=== PATIENT | female | born 1960 | race Caucasian/White ===

== ENCOUNTER 2020-10-22 07:44 | Outpatient (CLI) | payer OTHER, SELFPAY ==
--- NOTE | 2020-10-22 07:47 | MM_ITS ---
WS: [id number] BILATERAL DIGITAL SCREENING MAMMOGRAPHY WITH CAD CLINICAL INFORMATION: SCREENING HISTORY: Screening mammogram. No current complaints. COMPARISON: TECHNIQUE: Bilateral CC and MLO views. FINDINGS: Scattered fibroglandular densities bilaterally. Large spiculated lesion upper outer left breast poste rior depth measuring 3.3 x 1.9 cm is new from 2019. Recommend further evaluation with spot compressio n views and ultrasound. Prior biopsy marker right breast MM/[place] [id number] IMPRESSION: BI-RADS: 0-Incomplete: Need additional imaging evaluation FOLLOW UP: Need Additional Imaging RECOMMEND LEFT DIAGNOSTIC MAMMOGRAPHY AND ULTRASOUND FOR THE NEW LARGE IRREGULA R LESION LEFT BREAST.
== END 2020-10-22 07:45 | disposition home or self-care (01) ==
LOC: RADSHAW 07:45
PROVIDERS: PCP Family Medicine; Visit Provider Family Medicine
DX: Z12.31 Encounter for screening mammogram for malignant neoplasm of breast (principal)
CPT/HCPCS: 77067

== ENCOUNTER 2020-10-30 07:29 | Outpatient (CLI) | payer OTHER, SELFPAY ==
--- NOTE | 2020-10-30 | US_ITS ---
NOTE: Report was unsigned for reason: Order was edited. Original Signature date and time was: 1056 ADDENDUM WS: [id number] Dr Arroyo's nurse was called with results at 240 pm. Nurse confirmed receipt of report. Addendum Dictated By: Marianne Monroy DO Addendum Signed By: Marianne Monroy DO Signed Date/Time: 10/30/20 1538 Addendum Cosigned By: WS: [id number] ADDITIONAL VIEWS LEFT MAMMOGRAM LEFT BREAST ULTRASOUND HISTORY: ABNORMAL MAMMOGRAM LT BREAST COMPARISON: 10/22/2020, 09/13/2018 LEFT MAMMOGRAM: Spot compression views and true ML. Spiculated mass is identified in the posterior LEFT breast along the 2:00 axis. Mass measures 2.3 x 3.5 cm with spiculated margins and mild soft tissue extensions into the trabecula. LEFT BREAST ULTRASOUND 2-D and color Doppler imaging submitted. Hypoechoic irregular mass with posterior shadowing at 2:00, 7 cm from the nipple. Mass measures 1.9 x 2.4 cm. Mild peripheral increased vascularity. No abnormal lymph nodes. MM/[place] [id number] IMPRESSION: BI-RADS: 5-Highly Suggestive of Malignancy FOLLOW UP: Biopsy Recommended Ultrasound guided biopsy recommended of the LEFT breast mass at 2:00. Notified Molina Arroyo MD at 10/30/2020 10:39 AM. MARLENA
--- NOTE | 2020-10-30 07:44 | MM_ITS ---
WS: [id number] ADDITIONAL VIEWS LEFT MAMMOGRAM LEFT BREAST ULTRASOUND HISTORY: ABNORMAL MAMMOGRAM LT BREAST COMPARISON: 10/22/2020, 09/13/2018 LEFT MAMMOGRAM: Spot compression views and true ML. Spiculated mass is identified in the posterior LEFT breast along the 2:00 axis. Mass measures 2.3 x 3 .5 cm with spiculated margins and mild soft tissue extensions into the trabecula. LEFT BREAST ULTRASOUND 2-D and color Doppler imaging submitted. Hypoechoic irregular mass with posterior shadowing at 2:00, 7 cm from the nipple. Mass measures 1.9 x 2.4 cm. Mild peripheral increased vascularity. No abnormal lymph nodes. MM/[place] [id number] IMPRESSION: BI-RADS: 5-Highly Suggestive of Malignancy FOLLOW UP: Biopsy Recommended Ultrasound guided biopsy recommended of the LEFT breast mass at 2:00. Notified Molina Arroyo MD at 10/30/2020 10:39 AM.
== END 2020-10-30 07:30 | disposition home or self-care (01) ==
LOC: RADSHAW 07:34
PROVIDERS: PCP Family Medicine; Visit Provider Family Medicine
DX: R92.8 Other abnormal and inconclusive findings on diagnostic imaging of breast (principal); N63.22 Unspecified lump in the left breast, upper inner quadrant
CPT/HCPCS: 76642; 77065

== ENCOUNTER 2020-11-05 12:20 | Outpatient (CLI) | payer OTHER, SELFPAY ==
--- NOTE | 2020-11-05 12:31 | US_ITS ---
WS: [id number] ULTRASOUND-GUIDED LEFT BREAST BIOPSY HISTORY: ABNORMAL L BREAST MAMMOGRAM COMPARISON: 10/30/2020, 10/22/2020 Procedure, risks and complications are explained to the patient. Medications are reviewed. Consent is obtained. The mass in the LEFT breast is localized with ultrasound. Mass localizes at 2:00. Skin is cleansed wi th ChloraPrep and anesthetized with 1% buffered lidocaine. Small dermatome is made. Under sterile con ditions mass is biopsied with a 14-gauge Achieve needle. Multiple core biopsies are performed. Materi al placed in formalin and sent to pathology for review. No complications encountered. Breast tissue marker (Bard ultrasound enhanced ribbon): Single. Patient left the radiology suite with no complications. Patient is instructed to return to [facility] [place] [facility] with any concerns. US/[place] [id number] IMPRESSION: 1. Uncomplicated core needle biopsy LEFT breast mass at 2:00. PATHOLOGY: Desmoid tumor. RECOMMENDATION: Please see the entire histopathology report. Consider surgical evaluation and possible removal.
== END 2020-11-05 12:21 | disposition home or self-care (01) ==
PROVIDERS: PCP Family Medicine; Visit Provider Family Medicine
DX: R92.8 Other abnormal and inconclusive findings on diagnostic imaging of breast (principal); N63.20 Unspecified lump in the left breast, unspecified quadrant
CPT/HCPCS: 19083; 88305

== ENCOUNTER → 2020-11-24 11:58 | Outpatient (BNVA) | payer OTHER, SELFPAY | PROVIDERS: PCP Family Medicine; Visit Provider Surgery | DX: Z20.822 Contact with and (suspected) exposure to COVID-19 (principal) | CPT/HCPCS: 87635 ==

== ENCOUNTER 2020-12-01 08:47 | Day surgery (SDC) | payer OTHER, SELFPAY ==
[2020-11-28 10:06] VITALS: BMI 39.9
[2020-12-01] VITALS (7 sets, daily range): BP systolic 106–143; BP diastolic 68–99; PULSE 60–73; RESP 12–18; TEMP 36.2–36.5; O2SAT 95–98
--- NOTE | 2020-12-01 09:21 | W.PM.OPSUD ---
Surgery/Procedure H&P Update DATE OF PROCEDURE: December 01, 2020 DATE H&P PERFORMED: 11/21/20 H&P UPDATE INFORMATION: I have reviewed H&P completed within last 30 days, I have examined patient prior to procedure and No changes to prior documentation PREOP DIAGNOSIS: left breast mass PLANNED PROCEDURE: Operation Date: 12/01/20 11:00 Proposed Procedures p left breast lumpectomy 59188 D48.60(Left) - Roman Segura MD
--- NOTE | 2020-12-01 09:48 | ANES.PREANE2 ---
Pre-Anesthetic Assessment Pre-Anesthetic Assessment: Height/Weight: Height 1.7 m Weight 115.666 kg Temp Pulse Resp BP Pulse Ox 97.4 F L 72 18 143/99 96 12/01/20 09:12 12/01/20 09:12 12/01/20 09:12 12/01/20 09:12 12/01/20 09:12 Preop Diagnosis: left breast mass Proposed Procedure: Operation Date: 12/01/20 11:00 Proposed Procedures p left breast lumpectomy 83337 D48.60(Left) - Roman Segura MD Familial anesthetic complications: occassional PONV Was Beta Cary taken within 24 hours: N/A Was Clonidine taken within 24 hours: N/A Last intake: Intake Last Liquid Date 11/30/20 Last Liquid Time 23:00 Last Solid Date 11/30/20 Last Solid Time 21:00 Social: Social History: No alcohol and No tobacco Exam: Pre-Anes Outpt Exam: alert, oriented x 3, clear to auscultation bilaterally and regular rate & rhythm Airway: Cervical ROM: WNL MP: 3 Dentition: Full Pulmonary: Pulmonary: Asthma (cold- and exercise-induced ) GI: GI: GERD Metabolic: Metabolic: Morbid obesity and Thyroid Anesthetic Plan: ASA status: 2 Anesthesia: MAC Risk of > 500 ml blood loss (7ml/kg in children): No PFSH Anesthesia PFSH: Medical History (Updated 11/21/20 @ 11:55 by Roman Segura MD) Chronic GERD 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 Dyslipidemia Hypothyroidism Surgical History (Updated 12/01/20 @ 09:30 by Roman Segura MD) History of cholecystectomy History of colonoscopy History of esophagogastroduodenoscopy (EGD) History of foot surgery History of nasal surgery Status post left breast lumpectomy (12/01/20) Family History (Updated 11/21/20 @ 11:28 by SAVANNAH Miller) Denies family history of Anesthesia complication Bleeding disorder Social History (Updated 06/05/20 @ 10:57 by Frances Freed) Smoking and tobacco status: never smoked Alcohol intake: current Alcohol intake frequency: holidays/special occasions only Data Anesthesia Cardiac Studies: No Data to Display
[2020-12-01] MEDS: lidocaine 1% INJ 20 mL INJECTION (11:11)
--- NOTE | 2020-12-01 11:49 | PM.OP ---
Operative Report Date of procedure: December 01, 2020 Pre-op Diagnosis: Desmoid tumor left breast Post-op diagnosis: same Procedure Done: Left breast lumpectomy with shave margins Specimens removed/disposition: 1. Left breast mass short stitch superior, long stitch lateral 2. Superior shave margin 3. Inferior shave margin 4. Anterior shave margin 5. Medial shave margin 6. Lateral shave margin Surgeon: Roman Segura Anesthesia: MAC and General Condition: stable Disposition: PACU Procedure: The patient was taken to the operating room and the left breast was prepped and draped in a sterile manner. Using a 15 blade 4 cm incision was made over the palpable mass in the anterior axillary line, subcutaneous tissue was divided and medial lateral skin flaps were raised. The palpable mass was dissected free from the surrounding subcutaneous tissue using electrocautery. Bleeding was controlled with a combination of electrocautery and 3-0 Vicryl sutures. The mass was excised free from the surrounding subcutaneous tissue and posteriorly from the pectoral muscle and sent to pathology. 2-0 silk suture was used to place a short stitch superiorly and a long stitch laterally. 1 cm shave margins were obtained from the superior, inferior, medial, lateral and anterior margins and the outer edge was inked. There was no posterior margin obtained since my initial dissection included the pectoral muscle. The wound was irrigated with saline, hemostasis ensured and the wound was closed in layers using interrupted 3-0 Vicryl suture and skin was closed using running subcuticular 4-0 Monocryl suture and Dermabond. 1% lidocaine with 0.5% Marcaine is infiltrated in the lumpectomy cavity. The patient was transferred to recovery room in stable condition.
--- NOTE | 2020-12-01 16:36 | ANE.PACU2 ---
Inpatient post-anesthesia follow up: Airway intact: Yes Vital signs: Temperature 97.2 F Pulse Rate 60 Respiratory Rate 17 Blood Pressure 126/80 Pulse Oximetry 98 Oxygen Delivery Me thod Room Air Oxygen Flow Rate Fraction of Inspir ed Oxygen Hydration adequate: Yes Nausea and vomiting: No Pain level: 2 Mental status: Baseline
== END 2020-12-01 13:10 | disposition home or self-care (01) ==
PROVIDERS: PCP Family Medicine; Visit Provider Surgery
PROC: (CPT 19301; principal; 2020-12-01 10:50)
DX: D48.62 Neoplasm of uncertain behavior of left breast (principal); J45.909 Unspecified asthma, uncomplicated; K21.9 Gastro-esophageal reflux disease without esophagitis; E66.01 Morbid (severe) obesity due to excess calories; Z68.39 Body mass index [BMI] 39.0-39.9, adult; E78.5 Hyperlipidemia, unspecified; E03.9 Hypothyroidism, unspecified
CPT/HCPCS: 19301; 88305; J0690; J1100; J1885; J2250; J2370; J2704; J3010; J3490

== ENCOUNTER → 2021-03-02 10:19 | Outpatient (BNVA) | payer OTHER, SELFPAY | PROVIDERS: PCP Family Medicine; Visit Provider Surgery | DX: Z11.52 Encounter for screening for COVID-19 (principal) | CPT/HCPCS: 87635 ==

== ENCOUNTER 2021-03-05 06:35 | Day surgery (SDC) | payer OTHER, SELFPAY ==
[2021-03-02 12:43] VITALS: BMI 42.7
--- NOTE | 2021-03-05 06:54 | ANES.PREANE2 ---
Pre-Anesthetic Assessment Pre-Anesthetic Assessment: Height/Weight: Height 1.68 m Weight 120.202 kg Preop Diagnosis: Desmoid tumor left breast Proposed Procedure: Operation Date: 03/05/21 08:00 Proposed Procedures p Colonoscopy 98280 Z12.11(Not Applicable) - Roman Segura MD Was Beta Cary taken within 24 hours: N/A Was Clonidine taken within 24 hours: N/A Social: Social History: No alcohol and No tobacco Exam: Pre-Anes Outpt Exam: alert, oriented x 3, clear to auscultation bilaterally and regular rate & rhythm Airway: Submandibular: WNL Cervical ROM: WNL MP: 2 Dentition: Full GI: GI: GERD Metabolic: Metabolic: Hyperlipidemia, Morbid obesity and Thyroid Anesthetic Plan: ASA status: 3 Anesthesia: MAC Risk of > 500 ml blood loss (7ml/kg in children): No PFSH Anesthesia PFSH: Medical History (Updated 12/12/20 @ 16:35 by Roman Segura MD) Chronic GERD Desmoid tumor Left breast Dyslipidemia Hypothyroidism Surgical History History of cholecystectomy History of colonoscopy History of esophagogastroduodenoscopy (EGD) History of foot surgery History of nasal surgery Status post left breast lumpectomy (12/01/20) Family History Denies family history of Anesthesia complication Bleeding disorder Social History Alcohol intake: current Alcohol intake frequency: holidays/special occasions only Data Anesthesia Cardiac Studies: No Data to Display
[2021-03-05 07:01] VITALS: BP 99/74; PULSE 86; RESP 18; TEMP 36.1; O2SAT 96
[2021-03-05] MEDS: sodium chloride 0.9% 1,000 ML 30 ML IV (07:17)
--- NOTE | 2021-03-05 08:14 | P.HP_ITS ---
Same Day Surgery H&P Indication for Procedure/HPI DATE OF PROCEDURE: March 05, 2021 CHIEF COMPLAINT/INDICATIONFOR SURGICAL PROCEDURE: colonoscopy PREOP DIAGNOSIS: Desmoid tumor left breast PLANNED PROCEDRUE: Operation Date: 03/05/21 08:00 Proposed Procedures p Colonoscopy 16529 Z12.11(Not Applicable) - Roman Segura MD Medications/Allergies* Home Medications Medication Instructions Recorded Confirmed Type levothyroxine 25 mcg capsule 25 mcg PO DAILY 03/13/20 03/05/21 History omeprazole 20 mg capsule,delayed 20 mg PO DAILY 03/13/20 03/02/21 History release sertraline 50 mg tablet 50 mg PO DAILY 03/13/20 03/02/21 History atorvastatin 10 mg tablet 10 mg PO DAILY 11/21/20 03/05/21 History Allergies/Adverse Reactions Allergy/AdvReac Type Severity Reaction Status Date / Time No Known Allergies Allergy Verified 03/05/21 06:59 Current Medications: Generic Name Dose Route Start Last Admin Trade Name Freq PRN Reason Stop Dose Admin Sodium Chloride 1,000 mls @ 30 mls/hr 03/05/21 06:45 03/05/21 07:17 Sodium Chloride 0.9% IV 03/06/21 06:44 30 mls/hr .Q24H JUAN Administration Pertinent History/Comorbid Conditions* Medical History (Updated 12/12/20 @ 16:35 by Roman Segura MD) Chronic GERD Desmoid tumor Left breast Dyslipidemia Hypothyroidism Surgical History (Updated 12/01/20 @ 09:30 by Roman Segura MD) History of cholecystectomy History of colonoscopy History of esophagogastroduodenoscopy (EGD) History of foot surgery History of nasal surgery Status post left breast lumpectomy (12/01/20) Family History (Updated 11/21/20 @ 11:28 by SAVANNAH Miller) Denies family history of Anesthesia complication Bleeding disorder Social History Alcohol intake: current Alcohol intake frequency: holidays/special occasions only Pertinent Exam Findings alert, oriented x 3 and regular rate & rhythm Recommendations Surgery/Procedure today Coding Level of Care Code Acute Intravenous Therapy Nurse for Malig Alfonso
[2021-03-05 08:37] VITALS: BP 107/75; PULSE 65; RESP 18; TEMP 36.1; O2SAT 91
--- NOTE | 2021-03-05 08:39 | ANE.PACU2 ---
Inpatient post-anesthesia follow up: Airway intact: Yes Vital signs: Temperature 97.0 F Pulse Rate 65 Respiratory Rate 18 Blood Pressure 107/75 Pulse Oximetry 91 Oxygen Delivery Me thod Room Air Oxygen Flow Rate Fraction of Inspir ed Oxygen Hydration adequate: Yes Nausea and vomiting: No Pain level: 1 Mental status: Baseline
[2021-03-05 08:45] VITALS: BP 118/84; PULSE 64; RESP 18; O2SAT 94
== END 2021-03-05 08:56 | disposition home or self-care (01) ==
PROVIDERS: PCP Family Medicine; Visit Provider Surgery
PROC: 0DJD8ZZ Inspection of Lower Intestinal Tract, Via Natural or Artificial Opening Endoscopic (ICD-10-PCS; CPT 45378; principal; 2021-03-05 08:00)
DX: Z12.11 Encounter for screening for malignant neoplasm of colon (principal); K57.30 Diverticulosis of large intestine without perforation or abscess without bleeding; K64.8 Other hemorrhoids; K21.9 Gastro-esophageal reflux disease without esophagitis; E78.5 Hyperlipidemia, unspecified; E66.01 Morbid (severe) obesity due to excess calories; Z68.41 Body mass index [BMI] 40.0-44.9, adult; E03.9 Hypothyroidism, unspecified
CPT/HCPCS: 45378; 96360; J2704; J7030

== ENCOUNTER 2021-07-16 12:03 | Outpatient (CLI) | payer OTHER, SELFPAY ==
--- NOTE | 2021-07-16 12:08 | CT_ITS ---
WS: [email or web address] CT ABDOMEN PELVIS TECHNIQUE: Contrast-enhanced CT of the abdomen and pelvis with coronal and sagittal reformatted image s. CLINICAL INFORMATION: R HIP PAIN/RLQ ABD PAIN COMPARISON: 06/03/11 DLP: 1436.[address] scans at [facility] use at least one of these dose optimization techniques: automated e xposure control; mA and/or kV adjustment per patient size (includes targeted exams where dose is matc hed to clinical indication); or iterative reconstruction. FINDINGS: Calcified granuloma RIGHT lower lobe. Subsegmental atelectasis in the lung bases. Moderate to large e sophageal hiatal hernia. Air-fluid level in the stomach. Diffuse fatty infiltration liver. Cholecystectomy clips. Normal jordan l vein and splenic vein. Normal pancreatic parenchymal enhancement. Normal celiac and SMA. Normal geeta iber abdominal aorta. Splenic granulomas. Adrenal glands are normal. Normal renal parenchymal enhance ment. No hydronephrosis. No obstructing renal or ureteral calculi. Pelvic phleboliths. Wide mouth fat -containing umbilical hernia with hernia mouth opening measuring 4.7 cm. No herniated bowel. No acute findings in the inguinal regions bilaterally No evidence of high-grade small or large bowel obstruction. No free fluid in the pelvis. A few sigmoi d diverticuli. No evidence of acute diverticulitis. Normal terminal ileum. Normal appendix in the RIG HT lower quadrant. No evidence of acute appendicitis. Mild chronic anterior wedging in the lower thor acic spine. Benign hemangioma L3 vertebral body. CT/CT abdomen pelvis w con* [id number] IMPRESSION: 1. No acute findings in the inguinal regions bilaterally. 2. Normal appendix in the RIGHT lower quadrant. No evidence of acute appendici tis. 3. Mild diffuse fatty infiltration of the liver. Prior cholecystectomy. Modera te to large esophageal hiatal hernia has progressed compared to 2012. 4. Normal caliber abdominal aorta. 5. [place] fat-containing umbilical hernia. No herniated bowel.
[2021-07-16] MEDS: iohexol 300 mg/mL 100 mL Btl IV (13:23)
== END 2021-07-16 12:04 | disposition home or self-care (01) ==
LOC: RAD 12:04
PROVIDERS: PCP Family Medicine; Visit Provider Family Medicine
DX: R10.31 Right lower quadrant pain (principal); M25.551 Pain in right hip; K42.9 Umbilical hernia without obstruction or gangrene; K44.9 Diaphragmatic hernia without obstruction or gangrene; K76.0 Fatty (change of) liver, not elsewhere classified; Z90.49 Acquired absence of other specified parts of digestive tract
CPT/HCPCS: 74177

== ENCOUNTER 2021-07-17 06:53 | Emergency (ER) | payer OTHER, SELFPAY ==
[2021-07-17 07:07] VITALS: BP 144/94; PULSE 80; RESP 18; TEMP 37.6; O2SAT 96; BMI 45.1
[2021-07-17] MEDS: ondansetron 2 mg/ML SDV 2 mL 4 MG IVP (08:01)
[2021-07-17 08:02] VITALS: RESP 16
[2021-07-17] MEDS: morphine 4 mg/mL SDV 1 mL IVP (08:02)
[2021-07-17] MEDS: dexamethasone 10 mg/mL INJ IVP (08:03)
[2021-07-17] MEDS: orphenadrine 30 mg/mL Inj 2 mL 60 MG IVP (08:04)
--- NOTE | 2021-07-17 08:28 | W.ED.EXTPRO ---
HPI - Extremity Problem General: Chief complaint: Extremity Injury, Lower Stated complaint: BACK PAIN/WEAKNESS Time Seen by Provider: 07/17/21 07:06 Source: patient Mode of arrival: EMS Limitations: no limitations History of Present Illness: 60-year-old female presents emergency room with pain in the right groin is worse with standing. A little bit of back discomfort as well. She denies any trauma or fall she has been being seen by Dr. Watson her primary care for this she had an abdominal CT they also made an addendum reviewing the hip. There is nothing acute in either the back abdomen or hip. Pain per good continues to worsen she notices when she is standing its much worse. She denies dysuria urgency or frequency or hematuria. No fecal incontinence no urinary retention MD Complaint: extremity pain Onset (ago): day(s) Location: right and lower extremity (Hip) Quality: sharp Relieving factors: other (Supine) Exacerbating factors: weight bearing and walking Associated symptoms: Deny arthralgias, chest pain, fever(s), myalgias, rash or short of breath Review of Systems Const: Denies: fever(s) ENMT: Denies: throat pain, ear or mastoid pain, nasal discharge or nasal congestion Card: Denies: chest pain Resp: Denies: dyspnea, productive cough or non-productive cough GI: Denies: abdominal pain, nausea, vomiting, hematemesis, coffee ground emesis, diarrhea, constipation, bloating, hematochezia or melena : Denies: flank pain, difficulty voiding, dysuria, urinary frequency or urinary urgency Skin/Breast: Denies: rash PFSH ED PFSH: Medical History (Updated 07/17/21 @ 08:37 by Miller Srinivasan DO) Chronic GERD Desmoid tumor Left breast Dyslipidemia Hypothyroidism Surgical History (Updated 03/05/21 @ 08:33 by Roman Segura MD) History of cholecystectomy History of colonoscopy (03/05/21) History of esophagogastroduodenoscopy (EGD) History of foot surgery History of nasal surgery Status post left breast lumpectomy (12/01/20) Family History Denies family history of Anesthesia complication Bleeding disorder Social History Alcohol intake: current Alcohol intake frequency: holidays/special occasions only Physical Exam Const: COMMON NORMALS: no acute distress GENERAL APPEARANCE: cooperative ORIENTATION/CONSCIOUSNESS: Yes awake, Yes oriented to person, Yes oriented to place and Yes oriented to time HENMT: COMMON NORMALS: normocephalic, atraumatic and hearing grossly normal bilaterally HEAD & SCALP: normocephalic and atraumatic Neck/C-Spine: COMMON NORMALS: no JVD Resp: COMMON NORMALS: normal respiratory effort, No retractions, No use of accessory muscles and clear to auscultation bilaterally AUSCULTATION: clear to auscultation bilaterally Cardio: COMMON NORMALS: no JVD, regular rate, regular rhythm and No murmurs present (Cardio) RATE: regular rate RHYTHM: regular rhythm GI: COMMON NORMALS: Soft to palpation and No hepatosplenomegaly present AUSCULTATION: Yes normoactive bowel sounds PALPATION: Yes Soft to palpation, No Tenderness to palpation present (GI), No Guarding due to palpation present (GI) and Yes No hepatosplenomegaly present : COMMON NORMALS: Yes no CVA tenderness BLADDER/KIDNEY EXAM: Yes no CVA tenderness Back/Pelvis: COMMON NORMALS: no CVA tenderness Extremity: COMMON NORMALS: normal to inspection, capillary refill normal, no clubbing, cyanosis or edema, no calf tenderness and no pedal edema Neuro: SENSORIUM/ORIENTATION: Yes oriented to person, Yes oriented to place and Yes oriented to time OTHER: Incision lower extremities intact neurovascularly intact lower extremities dorsum plantar flexion 12 history leg raising positive on the right. Skin: COMMON NORMALS: no rashes or lesions noted GENERAL SKIN EXAM: no rashes or lesions noted Course Vital Signs: Vital signs: Vital Signs Temperature 99.7 F H 07/17/21 07:07 Pulse Rate 80 07/17/21 07:07 Respiratory Rate 16 07/17/21 08:02 Blood Pressure 144/94 07/17/21 07:07 Pulse Oximetry 96 07/17/21 07:07 MDM - Extremity (Nontraumatic) Medical Decision Making Postvoid residual of 90 or less I discussed with Dr. Monroy who reviewed previous found she did not feel that repeat imaging it would add much to the patient's case at this point. Clinically she does not have cauda equina syndrome. Her pain is much improved with the steroids and medications given here in the emergency room we will discharge her home with Percocet prednisone taper tizanidine and diclofenac. Set up for outpatient MRI of her lumbar spine and follow-up with Dr. Watson return if her pain is poorly controlled. Discharge Plan Discharge Patient Disposition: Home Clinical Impression: Radicular pain of right lower extremity Condition: Stable Prescriptions: New prednisone 20 mg tablet 20 mg PO TID Qty: 15 0RF Rx Instructions: 1 p.o. 3 times daily x3 days, 1 p.o. twice daily x2 days, 1 p.o. daily x2 days tizanidine 4 mg capsule 4 mg PO Q6H PRN (Reason: muscle spasticity) Qty: 20 0RF Rx Instructions: do not exceed 3 doses per 24 hrs Percocet 5-325 mg tablet 1 tab PO Q4H PRN (Reason: pain) Qty: 20 0RF diclofenac sodium 75 mg tablet,delayed release (DR/EC) 75 mg PO Q12H PRN (Reason: pain) Qty: 20 0RF No Action atorvastatin [Lipitor] 10 mg tablet 10 mg PO DAILY 0RF sertraline [Zoloft] 50 mg tablet 50 mg PO DAILY 0RF levothyroxine 25 mcg capsule 25 mcg PO DAILY 0RF omeprazole 20 mg capsule,delayed release(DR/EC) 20 mg PO DAILY 0RF Xyzal 5 mg Tablet 5 mg PO DAILY PRN (Reason: Allergy Symptoms) 0RF albuterol sulfate 90 mcg/actuation Hfa Aerosol Inhaler 2 puff INHALATION Q6H PRN (Reason: Shortness Of Breath Or Wheezing) 0RF Discharge Orders: Discharge ED (Routine); Ordered 07/17/21 Ordered By: Miller Srinivasan Referrals: Molina Arroyo MD [Primary Care Provider] - Discharge Diet: Usual diet Discharge Activity: Limit activity as instructed Patient Instructions: Opioid Safety Activity Restrictions/Additional Instructions: No heavy lifting bending or stooping. Case management make arrangements for an outpatient MRI of your lumbar spine follow-up with Dr. Arroyo Coding Level of Care Code ED Civil Engineering Project Manager for Kenny Hamilton
--- NOTE | 2021-07-17 09:01 | PC.NURSE ---
Bladder scan residual completed for post-void residual. Pt voided 400 mL and highest scan was 93 mL with average scans <20 mL
[2021-07-17 09:35] VITALS: BP 137/92; PULSE 77; RESP 17; O2SAT 93
== END 2021-07-17 09:19 | disposition home or self-care (01) ==
PROVIDERS: Emergency Provider Family Medicine; PCP Family Medicine
DX: M79.661 Pain in right lower leg (principal)
CPT/HCPCS: 51798; 96374; 96375; 99284; J1100; J2270; J2360; J2405

== ENCOUNTER → 2021-07-29 13:40 | Outpatient (BNVA) | payer OTHER, SELFPAY | PROVIDERS: PCP Family Medicine; Visit Provider Family Medicine | DX: R07.81 Pleurodynia (principal); M25.551 Pain in right hip; R10.31 Right lower quadrant pain | CPT/HCPCS: 80053; 84443; 84550; 85025; 85651; 86140 ==

== ENCOUNTER → 2021-08-19 08:41 | Outpatient (BNVA) | payer OTHER, SELFPAY | PROVIDERS: PCP Family Medicine; Visit Provider Family Medicine | DX: R50.9 Fever, unspecified (principal); R07.81 Pleurodynia | CPT/HCPCS: 85025; 85651; 86141; 86618; 86666; 86757 ==

== ENCOUNTER 2021-09-03 10:04 | Outpatient (CLI) | payer OTHER, SELFPAY ==
[2021-09-03 11:10] LABS: Basophils # 0.1 10^3/uL (0.0-0.1); Basophils % 0.6 %; Eosinophils # 0.2 10^3/uL (0.0-0.8); Eosinophils % 2.8 %; Hematocrit 42.1 % (37.0-47.0); Hemoglobin 14.1 g/dL (11.5-15.3); Lymphocytes % 25.8 %; Mean Corpuscular HGB Conc 33.5 g/dL (30.0-36.0); Mean Corpuscular Hemoglobin 28.7 pg (28.0-34.0); Mean Corpuscular Volume 85.7 fl (81-99); Monocytes # 0.6 10^3/uL (0.2-0.9); Monocytes % 7.9 %; Neutrophils # 4.83 10^3/uL (1.8-7.7); Neutrophils % 62.6 %; Nucleated Red Blood Cells % 0 %; Platelet Count 291 10^3/cmm (130-400); Red Blood Count 4.91 10^6/uL (4.1-5.3); Red Cell Distribution Width 13.7 % (12.1-15.1); White Blood Count 7.7 10^3/uL (4.0-10.0)
[2021-09-03 11:27] LABS: Alanine Aminotransferase 30 U/L (0-33); Alkaline Phosphatase 120 IU/L (35-105); Blood Urea Nitrogen 10 mg/dL (8-23); C Reactive Protein 11.8 mg/L (0.0-4.9); Calcium 9.2 mg/dL (8.5-10.5); Carbon Dioxide 20 mmol/L (22-29); Chloride 105 mmol/L (98-107); Glomerular Filtration Rate 101.6 mL/min (90-130); Glucose 117 mg/dL (65-115); Osmolality Calculated 286 mOsm/kg (285-295); Sodium 138 mmol/L (136-145); Total Bilirubin 0.5 mg/dL (0.15-1.2)
[2021-09-03 11:29] LABS: Anion Gap 17.3 (5-19); Aspartate Amino Transferase 33 U/L (0-32); Potassium 4.3 mmol/L (3.5-5.1)
[2021-09-04 13:12] LABS: Erythrocyte Sedimentation Rate 45 mm/hr (0-15)
== END 2021-09-03 10:05 | disposition home or self-care (01) ==
LOC: LAB 10:08
PROVIDERS: PCP Family Medicine; Visit Provider Family Medicine
DX: G51.0 Bell's palsy (principal); R50.9 Fever, unspecified; R07.81 Pleurodynia
CPT/HCPCS: 80053; 85025; 85651; 86140; 86666

== ENCOUNTER → 2021-11-30 07:46 | Outpatient (BNVA) | payer OTHER, SELFPAY | PROVIDERS: PCP Family Medicine; Visit Provider Family Medicine | DX: Z00.00 Encounter for general adult medical examination without abnormal findings (principal); E07.9 Disorder of thyroid, unspecified | CPT/HCPCS: 80053; 85025; 85651; 86140 ==

== ENCOUNTER 2022-02-19 07:02 | Outpatient (CLI) | payer OTHER, SELFPAY ==
--- NOTE | 2022-02-19 07:25 | MM_ITS ---
WS: [id number] Bilateral screening 3D tomosynthesis digital mammogram, 02/19/2022 Clinical Data: SCREEN Comparison: 10/30/2020, 10/22/2020, 09/13/2018, 04/23/2016, 12/30/2014, 12/21/2011, 10/31/2011, 11/13/2010, 09/30/2009, 05/15/2008. Findings: The breast parenchymal pattern shows fat replacement. No spiculated masses or clustered calcification s are seen. There are no secondary signs of carcinoma. The left breast density noted on the prior adis mogram is no longer present. There are lymph nodes in both axilla. MM/[place] [id number] Impression: 1. Negative bilateral mammogram unchanged. 2. Recommend annual screening mammograms. BIRADS: 1-Negative FOLLOW UP: 1 Year Follow-up The CAD baggage security checker was used.
== END 2022-02-19 07:03 | disposition home or self-care (01) ==
PROVIDERS: PCP Family Medicine; Visit Provider Family Medicine
DX: Z12.31 Encounter for screening mammogram for malignant neoplasm of breast (principal)
CPT/HCPCS: 77063; 77067

== ENCOUNTER → 2022-10-04 14:34 | Outpatient (BNVA) | payer OTHER, SELFPAY | PROVIDERS: PCP Family Medicine; Referring Provider Family Medicine; Visit Provider Psychiatry & Neurology Neurology | DX: G51.0 Bell's palsy (principal); G51.32 Clonic hemifacial spasm, left; H02.403 Unspecified ptosis of bilateral eyelids; R76.8 Other specified abnormal immunological findings in serum; Z86.19 Personal history of other infectious and parasitic diseases | CPT/HCPCS: 99203 ==

== ENCOUNTER 2022-10-28 10:29 | Outpatient (CLI) | payer OTHER, SELFPAY ==
--- NOTE | 2022-10-28 11:00 | MR_ITS ---
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 COMPARISON: 07/26/2008 TECHNIQUE: Multiplanar imaging performed through the brain with MultiHance 20 ml's IV. No acute infarcts are seen. Osullivan-white matter differentiation is well preserved. Moderate progression of T2 and FLAIR signal hyperintensities throughout the white matter. Distribution is most likely sma ll vessel ischemic disease. These are bilateral small vessel ischemic changes but greater on the RIGH T. No prior infarction and no hemorrhage. No susceptibility artifacts or prior lacunar infarcts. Ventricles and extra-axial spaces are normal. Clivus and pituitary gland are normal. Visualized posterior fossa and brainstem are also normal. Postcontrast images are negative for masses or vascular malformations. No enhancement along the 5th o r 7th cranial nerves. Dural venous sinuses are normal. Paranasal sinuses: Mucoperiosteal thickening in the maxillary and ethmoid air cells. No air-fluid lev els. Mucoperiosteal thickening continues into the RIGHT frontal sinus. Mastoid air cells: Normal. Calvarium and scalp: Normal. IMPRESSION: 1. No acute infarct and no enhancing masses. 2. Mild small vessel ischemic type changes throughout the white matter do not contact the corpus geeta losum. Mild progression since 2008. No enhancement in the white matter disease. 3. Mild sinusitis.
[2022-10-28] MEDS: gadobenate dimeglumine 20 mL vial IV ×2 (11:40→12:55)
== END 2022-10-28 10:30 | disposition home or self-care (01) ==
PROVIDERS: PCP Family Medicine; Visit Provider Psychiatry & Neurology Neurology
DX: G51.0 Bell's palsy (principal); Z86.19 Personal history of other infectious and parasitic diseases; I67.89 Other cerebrovascular disease
CPT/HCPCS: 70553; A9577

== ENCOUNTER → 2022-11-23 14:43 | Outpatient (BNVA) | payer OTHER, SELFPAY | PROVIDERS: PCP Family Medicine; Visit Provider Psychiatry & Neurology Neurology | DX: G51.0 Bell's palsy (principal); G51.32 Clonic hemifacial spasm, left | CPT/HCPCS: 99212 ==

== ENCOUNTER 2023-04-06 10:06 | Outpatient (CLI) | payer OTHER, SELFPAY ==
--- NOTE | 2023-04-06 10:13 | MM_ITS ---
WS: [id number] Bilateral screening 3D tomosynthesis digital mammogram, 04/06/2023 Clinical Data: SCREENING Comparison: 02/19/2022, 10/30/2020, 10/22/2020, 09/13/2018, 04/23/2016, 12/30/2014, 12/21/2011, 11/13/2010, 09/30/2009, 05/15/2008. Findings: The breast parenchymal pattern shows fat replacement. No spiculated masses or clustered calcification s are seen. There are no secondary signs of carcinoma. Impression: 1. Negative bilateral mammogram unchanged. 2. Recommend annual screening mammograms. MM/[place] [id number] BIRADS: 1-Negative FOLLOW UP: 1 Year Follow-up The CAD inventory checker was used.
== END 2023-04-06 10:07 | disposition home or self-care (01) ==
LOC: RAD 10:07
PROVIDERS: PCP Family Medicine; Visit Provider Family Medicine
DX: Z12.31 Encounter for screening mammogram for malignant neoplasm of breast (principal)
CPT/HCPCS: 77063; 77067

== ENCOUNTER → 2023-08-17 12:48 | Outpatient (BNVA) | payer OTHER, SELFPAY | PROVIDERS: PCP Family Medicine; Visit Provider Family Medicine | DX: E07.9 Disorder of thyroid, unspecified (principal); R53.83 Other fatigue; M79.673 Pain in unspecified foot; M65.30 Trigger finger, unspecified finger; E11.9 Type 2 diabetes mellitus without complications; Z79.899 Other long term (current) drug therapy | CPT/HCPCS: 80053; 80061; 82306; 82607; 83880; 84443; 85025; 85651; 86140 ==

== ENCOUNTER → 2023-08-24 08:18 | Outpatient (BNVA) | payer OTHER, SELFPAY | PROVIDERS: PCP Family Medicine; Visit Provider Podiatrist Foot & Ankle Surgery | DX: M79.671 Pain in right foot; M72.2 Plantar fascial fibromatosis | CPT/HCPCS: 73630 ==

== ENCOUNTER → 2023-09-15 07:47 | Outpatient (BNVA) | payer OTHER, SELFPAY | PROVIDERS: PCP Family Medicine; Visit Provider Physician Assistant | DX: M65.332 Trigger finger, left middle finger | CPT/HCPCS: 73130 ==

== ENCOUNTER 2023-09-20 06:38 | Outpatient (CLI) | payer OTHER, SELFPAY ==
--- NOTE | 2023-09-20 07:00 | USCV_ITS ---
Shu Tolentino Age: 63 Gender: F : 1960 Exam Date: 09/20/2023 06:49 Ordering Phys: Molina Arroyo MD Technologist: Exam [place]: [facility] [place] Indication: cp sob BP: 130 / 78 HR: 66 Rhythm: Sinus Technical Quality: Adequate MEASUREMENTS (Male / Female) Normal Values 2D ECHO LV Diastolic Diameter PLAX 5.2 cm 4.2 - 5.9 / 3.9 - 5.3 cm IVS Diastolic Thickness 1.1 cm 0.6 - 1.0 / 0.6 - 0.9 cm IVS Systolic Thickness 1.8 cm LVPW Diastolic Thickness 1.2 cm 0.6 - 1.0 / 0.6 - 0.9 cm LVPW Systolic Thickness 1.6 cm LVOT Diameter 2.0 cm LV Ejection Fraction 2D Teich 70.1 % LV Ejection Fraction MOD 4C 72.5 % LV Ejection Fraction MOD 2C 66.1 % LV Ejection Fraction 2C AL 68.9 % LA Diameter 3.2 cm RA Systolic Volume 4C AL 44.7 ml RA Systolic Volume 4C MOD 42.8 ml LA Sys Volume AL 74.4 cm cubed LA Sys Volume Index AL 27.3 cm cubed/m squared Aorta at Sinotubular Diameter 2.8 cm IVC Diameter 2.1 cm M-MODE LA Ao Ratio MM 1.5 AV Cusp Separation MM 2.4 cm DOPPLER AV Peak Velocity 134.0 cm/s LVOT Peak Velocity 105.0 cm/s AV Area Cont Eq vti 2.7 cm squared AV Area Cont Eq pk 2.5 cm squared MV Area PHT 2.7 cm squared Mitral E to A Ratio 0.8 TV Peak Velocity 144.8 cm/s TR Peak Velocity 173.0 cm/s TR Peak Gradient 12.0 mmHg TV Peak E Velocity 93.0 cm/s Right Atrial Pressure 3.0 mmHg Pulmonary Artery Systolic Pressu 15.0 mmHg PV Peak Velocity 98.0 cm/s FINDINGS Left Ventricle Normal left ventricular size, systolic function and wall thickness, with no regional wall motion abnormalities. Grade I/IV diastolic dysfunction (abnormal relaxation filling pattern), normal to mildly elevated filling pressures. Left ventricular ejection fraction is estimated at 60 %. Right Ventricle Normal right ventricular size and systolic function. Normal right ventricular systolic pressure. Right Atrium The right atrium is normal in size. Left Atrium The left atrium is normal in size. Mitral Valve Structurally normal mitral valve without significant stenosis or prolapse. There is no mitral regurgitation. Aortic Valve Structurally normal aortic valve without significant sclerosis or stenosis. There is no aortic regurgitation. Tricuspid Valve Structurally normal tricuspid valve without significant stenosis or regurgitation. Pulmonary artery systolic pressure is normal. Pulmonic Valve Pulmonic valve not well visualized. Pericardium Normal pericardium without effusion. Aorta Normal ascending aorta dimension. IVC The inferior vena cava appears normal. CONCLUSIONS Normal left ventricular size, systolic function and wall thickness, with no regional wall motion abnormalities. Grade I/IV diastolic dysfunction (abnormal relaxation filling pattern), normal to mildly elevated filling pressures. Left ventricular ejection fraction is estimated at 60 %. There are no prior echocardiogram studies to compare. Dr. Mat Antoine MD (Electronically Signed) Final Date: 20 September 2023 17:28 S
== END 2023-09-20 06:39 | disposition home or self-care (01) ==
PROVIDERS: PCP Family Medicine; Visit Provider Family Medicine
DX: I50.30 Unspecified diastolic (congestive) heart failure (principal); R07.9 Chest pain, unspecified
CPT/HCPCS: 93306

== ENCOUNTER 2023-12-28 09:51 | Outpatient (CLI) | payer OTHER, SELFPAY ==
--- NOTE | 2023-12-28 | ECG_ITS ---
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 Interpretive Statements Lung unchanged pre/post procedure; Intraprocedure shortess of breath; Symptoms resoled by discharge PROCEDURE: At the baseline, the patient's blood pressure was 140/102 millimeters of mercury with a heart rate of 97 bpm. The baseline electrocardiogram showed normal sinus rhythm with normal ST-Ts. Poor R wave progression. Some nonspecific T wave changes in the inferior leads The patient exercised for 3 minutes on a standard Addison protocol. Patient attained a maximum heart rate of 145 beats per minute(92% of the maximum predicted heart rate) with a blood pressure at the peak exercise of 125/86 mm Hg. The EKG at the peak exercise revealed no significant changes. Patient did not have any chest pain or any significant cardiac arrhythmias with the exercise During the recovery phase, there were no new changes. Blood pressure at the end of the recovery phase was 138/99 mm Hg with a heart rate of 95 per minute. CONCLUSION: 1. Normal EKG response to treadmill exercise 2. No exercise-induced chest pain or cardiac arrhythmia 3. Impaired exercise tolerance, attained a maximum of 4.6 METs 4. The Poole treadmill score is -1(moderate risk) Electronically Signed On 01-01-2024 21:55:05 CDT by Charlotte Lott M.D. [email or web address]
[2023-12-28 10:19] VITALS: BMI 48.4
--- NOTE | 2023-12-28 10:29 | NMCV_ITS ---
NM tommy perf SPECT r/s* [id number] Shu Tolentino Age: 63 Gender: F : 1960 Exam Date: 12/28/2023 10:56 Ordering Phys: Molina Arroyo MD Technologist: JOSE Jackson Exam Location: [facility] Indications: Dyspnea, CP STRESS TEST Please see separate stress test report in [facility] for full findings IMAGE PROTOCOL Rest/Stress 1 Exercise Day Radiopharmaceutical Dose (mCi) Administration Site Administered by Rest: Tc-99m 10.1 IV JOSE Gaming Sestamibi Stress:Tc-99m 32.6 IV JOSE Jackson Sestamipetty Rest: 28-Dec-2023 60 Discovery 630 Stress: 28-Dec-2023 30 Discovery 630 Radiopharmaceutical was injected at 86 % maximum heart rate. Images obtained in supine and prone position. SPECT RESULTS Technical Quality: Good Raw Data Analysis: Breast attenuation Image Corrections: No attenuation or motion correction applied Summed Stress Score: 4 Summed Rest Score: 2 Summed Difference Score: 2 PERFUSION FINDINGS A small area of minimal to moderately decreased tracer uptake involving the mid inferolateral, apical inferior and LV apex. Some reversibility was noted in the mid inferolateral and apical inferior regions FUNCTIONAL RESULTS (calculated via Gated SPECT) Stress Image LV EF (%): 67 Stress EDV (mL):105 TID: 0.89 Stress ESV (mL):35 FUNCTIONAL FINDINGS: Segmental wall motion analysis revealing no gross wall motion abnormalities IMPRESSIONS 1. Myocardial perfusion imaging revealing small area of minimal to moderately decreased tracer uptake involving the mid inferolateral, apical inferior and LV apex with some reversibility suggesting myocardial scarring with i subtle area of schemia, predominantly in the distribution of the left circumflex artery, with some involvement of the left anterior descending artery . 2. Normal LVEF of 67%. 3. LV wall motion analysis revealing no gross wall motion abnormalities. 4. Normal LV volume. No similar previous studies are available for comparison Dr Charlotte Lott MD [facility] (Electronically Signed) Final Date: 28 December 2023 14:03 S
[2023-12-28 11:56] VITALS: BP 133/88; PULSE 89
== END 2023-12-28 09:52 | disposition home or self-care (01) ==
PROVIDERS: PCP Family Medicine; Visit Provider Family Medicine
DX: R06.00 Dyspnea, unspecified (principal); R07.9 Chest pain, unspecified; R06.02 Shortness of breath; R94.39 Abnormal result of other cardiovascular function study
CPT/HCPCS: 36415; 78452; 93017; A9500

== ENCOUNTER → 2024-04-23 13:35 | Outpatient (BNVA) | payer OTHER, SELFPAY | PROVIDERS: PCP Family Medicine; Visit Provider Family Medicine | DX: R06.00 Dyspnea, unspecified (principal); R53.83 Other fatigue; E07.9 Disorder of thyroid, unspecified | CPT/HCPCS: 80053; 80061; 82607; 83880; 84443; 85025; 86140 ==

== ENCOUNTER 2024-05-14 10:32 | Outpatient (CLI) | payer OTHER, SELFPAY ==
--- NOTE | 2024-05-14 | MM_ITS ---
WS: [id number] BILATERAL SCREENING DIGITAL TOMOSYNTHESIS MAMMOGRAM WITH CAD HISTORY: ANNUAL SCREENING COMPARISON: 04/06/2023, 02/19/2022 and 10/22/2020 Bilateral CC and MLO views with tomosynthesis and synthetic mammography submitted. Computer aided detection analyzed. Breast composition: The breasts are almost entirely fatty. No suspicious masses, microcalcifications or architectural distortion. Benign calcifications. MM/MM scr BI tomosynthesis [id number] IMPRESSION: BI-RADS: 2 - Benign. FOLLOW UP: 1 Year Follow-up
== END 2024-05-14 10:33 | disposition home or self-care (01) ==
LOC: RAD 10:33
PROVIDERS: PCP Family Medicine; Visit Provider Family Medicine
DX: Z12.31 Encounter for screening mammogram for malignant neoplasm of breast (principal); R92.313 Mammographic fatty tissue density, bilateral breasts; R92.1 Mammographic calcification found on diagnostic imaging of breast
CPT/HCPCS: 77063; 77067

== ENCOUNTER → 2024-05-24 10:55 | Outpatient (BNVA) | payer OTHER, SELFPAY | PROVIDERS: PCP Family Medicine; Visit Provider Family Medicine | DX: D64.9 Anemia, unspecified (principal) | CPT/HCPCS: 82607; 82728; 83550; 85025; 85045 ==

== ENCOUNTER → 2024-05-28 07:23 | Outpatient (BNVA) | payer OTHER, SELFPAY | PROVIDERS: PCP Family Medicine; Visit Provider Family Medicine | DX: D64.9 Anemia, unspecified (principal) | CPT/HCPCS: 82270 ==

== ENCOUNTER 2024-05-30 07:12 | Outpatient (CLI) | payer OTHER, SELFPAY ==
[2024-05-30] VITALS (16 sets, daily range): BP systolic 112–155; BP diastolic 73–104; PULSE 62–82; RESP 13–19; TEMP 36.9; O2SAT 90–96; BMI 48.9
[2024-05-30] MEDS: diphenhydrAMINE 50 mg Capsule PO (08:00)
[2024-05-30] MEDS: aspirin 325 mg Tablet PO (08:00)
--- NOTE | 2024-05-30 08:30 | XACV_ITS ---
Ht: 168 cm Wt: 137 kg BSA: 2.61 m2 Gender: Female : 1960 Any Known Allergies: No known allergies Exam Priority: Routine Indication(s): - Chest pain - Abnormal stress perfusion study Procedure(s): Procedure Description: Diagnostic procedure Procedure Description: Left Heart Catheterization Procedure Description: Right Heart Catheterization Procedure Description: Left ventriculography Procedure Description: Coronary Angiography Carlyn DELGADO; Diagnostic Cath Status: Elective Diagnostic Findings * Left Main has no disease. * Circumflex has no disease. * Right Coronary Artery has no disease. It is a large-caliber large vessel which is dominant.. * Proximal Left Anterior Descending to Mid Left Anterior Descending: moderate 50% stenosis, SUZIE: 3 flow. Distal LAD is a small caliber tapering vessel.. * Coronary angiography shows right dominance. Conclusions 1. There is moderate coronary artery disease with one vessel disease. 2. All arreguin are normal. 3. Normal left ventricular systolic function. Ejection fraction of 60%. Recommendations * Continue current medical management and risk factor modification. Diagnostic RX Recommendation: medical therapy and/or counseling Ventriculography Ejection Fraction: 60.0 % Pressures Phase:Rest AO : / ( 8 ) @ 11:05:00 AM 129 / 92 ( 111 ) @ 11:09:00 AM 171 / 99 ( 130 ) @ 11:24:00 AM 160 / 90 ( 124 ) @ 11:24:00 AM LV : 157 / @ 11:23:00 AM 163 / 7 / 27 @ 11:24:00 AM 141 / 9 / 22 @ 11:24:00 AM RV : 33 / 16 / 19 @ 10:53:00 AM PA : 44 / 27 ( 34 ) @ 10:49:00 AM 41 / 24 ( 31 ) @ 10:49:00 AM RA : a wave = 20 v wave = 19 mean = 18 @ 10:55:00 AM a wave = 21 v wave = 19 mean = 18 @ 10:56:00 AM PCW : a wave = 21 v wave = 20 mean = 18 @ 10:51:00 AM a wave = 18 v wave = 20 mean = 18 @ 10:52:00 AM O2 Content Phase:Rest PA : O2 Content O2: 60.3 @ 11:05:00 AM Saturations Phase:Rest AO : 97 @ 11:24:00 AM RA : 59 @ 11:24:00 AM RV : 57 @ 11:09:00 AM PA : 60 @ 11:05:00 AM Cardiac Output Phase:Rest Josefina : 5 @ 10:39:58 AM Josefina Cardiac Index: 2 @ 10:39:58 AM Flow Phase:Rest Qp : 5 @ 10:39:58 AM Qs : 5 @ 10:39:58 AM Valves Phase:DefaultPhase AV : 0.0 @ 10:39:58 AM AV Mean Gradient: 0.0 @ 10:39:58 AM AV Flow: 1,095 @ 10:39:58 AM Clinical Evaluation EBL: 5mL-10mL Procedural Details Procedure Consent Obtained. Current Diagnosis : Chest Pain. Pre-Procedure Time Out. Identified patient by full name and date of as verbalized by the patient/guarantor. Does the consent match the physician's order: Yes. Accurate & Complete Informed Consent: Yes. Inpatient/Outpatient History & Physical on Chart: Yes. If H&P is completed, is and addenduem needed: No; If yes, is the addendum complete: N/A. Visualize and Verify Site with Patient/Guarantor: N/A. Relevant Radiology Images available: N/A. The risks, benefits, and alternatives of sedation and/or procedure were discussed by physician. The patient agrees to continue. Procedure started. [facility] Clinical Fraility Score: 4: Vulnerable. Coagulating Bath Mixer Indications: Other. Chest Pain Symptom Assessment: Atypical Angina. Cardiovascular Instability: No. Correct patient, site and procedure confirmed by cath team. Current diagnosis: Chest Pain; Anginal Equivalent; Shortness of breath, Abnormal Stress Testing. PERRLA. Strong, equal hand tea bag packer bilaterally. Lungs clear x 5 lobes. IV Site on Arrival: 20 gauge in the right anticubital. IV Site on Arrival: 20 gauge in the left upper arm. IV Fluids: 0.9% NaCl at KVO. 0 mL infused prior to cardiac cath lab radiology technologist. Pre Procedural Pulses: bilateral posterior tibial was 3+. Pre Procedural Pulses: bilateral dorsalis pedis was 3+. Pre Procedural Pulses: bilateral radial was 3+. Oxygen started at 0liters/min via nasal canula for RHC. right groin was prepped with chloroprep then draped in the usual sterile fashion. right radial was prepped with chloroprep then draped in the usual sterile fashion. Physician notified. Physician arrived. Family updated by MD prior to the start of the procedure. Baseline sample Acquired. HR: 73 BPM. Physician scrubbed in. Immediate Pre-Procedure Time Out. Correct Patient: Yes; Correct Procedure: Yes; Correct Site: Yes; Correct Patient Position: Yes; Correct Supplies: Yes; Dried Flammable Prep: Yes; Blood Products Available: N/A;. Lidocaine 1% infiltrated to the right brachial. [place]-Cy MON catheter inserted. Wilson Wire inserted. [place] advanced into position. Wire out. Oximetry samples were obtained. Normal venous range: 60-85%. Normal arterial range: 95-100%. Pressure measurements obtained. ABG drawn and sent with respiratory therapy. [place] OUT. Lidocaine 1% infiltrated to the right radial. Arterial access obtained. A 5 ecuadorean TIG catheter in over wire. Glidewire advanced to positon over the Glidewire. Multiple views taken of left coronary artery. Multiple views taken of left coronary artery. Catheter redirected to the RCA. Catheter removed over the exchange wire. A 5 ecuadorean JR4 catheter in over wire. Multiple views taken of right coronary artery. Physician review of films. Catheter removed over the wire. A 5 ecuadorean Angled Pig catheter in over wire. EDP Sample taken: LV 157/9,24; HR: 66 BPM; SpO2: 97%. LV gram performed in HEART @ 10 mL/second for a total of 30 mL. Patient EF: Normal. EDP Sample taken: LV 163/7,27; HR: 72 BPM; SpO2: 98%. Pullback taken: LV 141/9,22; AO 171/99(130); Mean: 0mmHg, Peak to Peak: 0mmHg, SEP: 4sec/min; HR: 65 BPM; SpO2: 96%. Catheter removed over the exchange wire. Physician review of films. Physician scrubbed out. A TR Band was successful obtaining hemostatsis at the Right Radial artery insertion site. A Mechanical Compression was successful obtaining hemostatsis at the Right Brachial Vein insertion site. TR band placed. Hemostasis obtained. Sheath(s) removed and manual pressure held until hemostasis was achieved. Sterile 4x4 and Op-site applied to the puncture site. No oozing or hematoma noted. Post sheath removal instructions were given and the patient verbalized understanding. Post Procedure: Pulses reassessed and unchanged. PERRLA. Strong, equal hand tea bag packer bilaterally. No VTE prophylaxis required. Medication's Wasted: Lidocaine 1% = 18 ml , Versed = 1 mg , Nitro = 49.6 mg , Heparin = 1000 units. Total IV fluids: 50 mL. Post-op diagnosis: Mild Pulmonary HTN; Non obstructive cad. Fluoro: 9:07. Contrast type used: Visipaque 320 mgI/mL, 100 mL bottle. [id number]. Complications: None. Estimated blood loss: 5mL-10mL. Responsiveness - Normal response to verbal stimuli; alert and oriented, PERRLA. Airway - Unaffected, no intervention required; spontaneous ventilation. Circulation: W/N/L, pulses unchanged. Nausea/Vomiting: No. Procedure completed. Vital chart was stopped. Patient transferred by bed to CPRU. Access Site Site: Right Brachial Vein Sheath Size: 6 Fr Hemostasis Method: Mechanical Compression Hemostasis Success: Successful Site: Right Radial artery Sheath Size: 6 Fr Hemostasis Method: TR Band Hemostasis Success: Successful Procedure Medications Start: 9:25 AM Stop: 9:25 AM Medication: Versed Amount: 1 mg Route: I.V. Start: 9:25 AM Stop: 9:25 AM Medication: Fentanyl Amount: 50 mcg Route: I.V. Start: 9:37 AM Stop: 9:37 AM Medication: Versed Amount: 1 mg Route: I.V. Start: 10:08 AM Stop: 10:08 AM Medication: Heparin Amount: 5000 units Route: I.V. Start: 10:08 AM Stop: 10:08 AM Medication: Fentanyl Amount: 25 mcg Route: I.V. Start: 10:03 AM Stop: 10:03 AM Medication: Nitrogylcerin Amount: 200 mcg Route: I.A. Start: 10:10 AM Stop: 10:10 AM Medication: Versed Amount: 1 mg Route: I.V. Start: 10:11 AM Stop: 10:11 AM Medication: Nitrogylcerin Amount: 200 mcg Route: I.C. Start: 10:18 AM Stop: 10:18 AM Medication: Fentanyl Amount: 25 mcg Route: I.V. I, the attending physician, have reviewed and verified all procedure medications. Yes, all medications given per verbal order History/Risk Factors Hypertension: Yes Dyslipidemia: Yes Peripheral Arterial Disease (PAD): No Myocardial Infarction (MT): Yes Obesity: Yes Renal Disease: No Tobacco Use: Never Prior Interventions PCI: No CABG: No Valve Surgery: No Report Signatures Finalized by Frances Alcocer MD on 06/10/2024 07:14 PM
--- NOTE | 2024-05-30 09:18 | W.PM.OPSUD ---
Surgery/Procedure H&P Update DATE OF PROCEDURE: May 30, 2024 DATE H&P PERFORMED: 05/08/24 H&P UPDATE INFORMATION: I have reviewed H&P completed within last 30 days, I have examined patient prior to procedure and No changes to prior documentation PRIMARY INDICATION FOR PROCEDURE: Worsening of shortness of breath Angina equivalent Abnormal stress test 63-year-old female past medical history significant for coronary artery disease hypertension hyperlipidemia despite optimization of medicine patient continues to do worse with shortness of breath thought to be angina:. In the past stress test was mildly abnormal therefore medicine were optimized since patient does not get relief and because of the fact she is getting worse we will proceed with left and right heart cath for unknown etiology of shortness of breath or to be angina equivalent. PLANNED PROCEDURE: Operation Date: 05/30/24 08:30 Proposed Procedures p Cardiac Catheterization - RLHC w/wo LV & Sarai(Bilateral) - Frances Alcocer MD PATIENT REASSESSED PRIOR TO SEDATION, WITH NO CHANGE NOTED: Yes PHYSICAL EXAM: alert, oriented x 3, clear to auscultation bilaterally, regular rate & rhythm and operative site marked AIRWAY EVAL/ANESTHESIA PLAN: ASA II, Risks, benefits & alternatives of sedation and/or procedure discussed and Patient agrees to continue as planned ADDITIONAL INFORMATION: All risk-benefit and alternative for the procedure has been explained. Patient understand 2% risk of stroke major bleed. Patient understand 4-6 percent risk of minor bleeding oozing infection hematoma contrast induced nephropathy. She understand risk for urgent or emergent vascular or CT surgery. Patient would like to proceed with it.
[2024-05-30 10:14] LABS: Arterial Blood Gas Hematocrit 15.6 % (37-47); Blood Gas Operator Identificat CAK; Blood Gas Sample Site CATH; Blood Gas Sample Type MixedVenous; Carboxyhemoglobin 1.7 %THgb (0.4-20.1); HGB O2 Sat 57.9 % (95-100); Methemoglobin 2.4 % (0.4-1.5); Total Hemoglobin 5.1 g/dL (12-16)
[2024-05-30 10:16] LABS: Arterial Blood Gas Hematocrit 23.1 % (37-47); Blood Gas Operator Identificat CAK; Blood Gas Sample Type MixedVenous; Carboxyhemoglobin 1.4 %THgb (0.4-20.1); HGB O2 Sat 55.2 % (95-100); Methemoglobin 1.4 % (0.4-1.5); Total Hemoglobin 7.6 g/dL (12-16)
[2024-05-30 10:17] LABS: Arterial Blood Gas Hematocrit 15.4 % (37-47); Blood Gas Operator Identificat CAK; Blood Gas Sample Site CATH; Blood Gas Sample Type MixedVenous; Carboxyhemoglobin 1.5 %THgb (0.4-20.1); HGB O2 Sat 57.4 % (95-100); Methemoglobin 1.9 % (0.4-1.5)
[2024-05-30 10:19] LABS: Arterial Blood Gas Hematocrit 15.3 % (37-47); Blood Gas Operator Identificat CAK; Blood Gas Sample Site CATH; Blood Gas Sample Type MixedVenous; Carboxyhemoglobin 1.5 %THgb (0.4-20.1); HGB O2 Sat 93.9 % (95-100); Methemoglobin 1.8 % (0.4-1.5)
== END 2024-05-30 13:59 | disposition home or self-care (01) ==
PROVIDERS: PCP Family Medicine; Visit Provider Internal Medicine Cardiovascular Disease
DX: I25.10 Atherosclerotic heart disease of native coronary artery without angina pectoris (principal); I10 Essential (primary) hypertension; E78.5 Hyperlipidemia, unspecified; K21.9 Gastro-esophageal reflux disease without esophagitis; I77.1 Stricture of artery; I21.9 Acute myocardial infarction, unspecified; E66.9 Obesity, unspecified; Z68.42 Body mass index [BMI] 45.0-49.9, adult; I25.2 Old myocardial infarction
CPT/HCPCS: 36415; 82810; 93460; 96374; 99152; 99153; C1751; C1769; C1887; C1894; J1644; J2250; J3010; J3490; J7030; J9999; Q0163; Q9967

== ENCOUNTER 2024-07-05 10:00 | Day surgery (SDC) | payer OTHER, SELFPAY ==
--- NOTE | 2024-07-05 10:13 | P.HPUD_ITS ---
Surgery/Procedure H&P Update DATE OF PROCEDURE: July 05, 2024 DATE H&P PERFORMED: 06/27/24 H&P UPDATE INFORMATION: I have reviewed H&P completed within last 30 days, I have examined patient prior to procedure, No changes to prior documentation, H&P is in [facility] EMR on date indicated and Risks and benefits of the procedure reviewed PLANNED PROCEDURE: Operation Date: 07/05/24 11:40 Proposed Procedures p EGD Dilation W/ Balloon 25896 R13.10(Not Applicable) - Dayo Youngblood MD
[2024-07-05 10:14] VITALS: BP 140/103; PULSE 90; RESP 16; TEMP 36.4; O2SAT 98
[2024-07-05 10:16] VITALS: BMI 48.1
[2024-07-05] MEDS: sodium chloride 0.9% 1,000 ML 15 ML IV (10:25)
--- NOTE | 2024-07-05 10:34 | ANES.PREANE2 ---
Pre-Anesthetic Assessment Height/Weight: Height 1.68 m Weight 135.171 kg Temp Pulse Resp BP Pulse Ox O2 Del Method 97.6 F 90 16 140/103 98 Room Air 07/05/24 10:14 07/05/24 10:14 07/05/24 10:14 07/05/24 10:14 07/05/24 10:14 07/05/24 10:14 Preop Diagnosis: Dysphagia Operation Date: 07/05/24 11:40 Proposed Procedures p EGD Dilation W/ Balloon 80517 R13.10(Not Applicable) - Dayo Youngblood MD Was Beta Cary taken within 24 hours: N/A Was Clonidine taken within 24 hours: N/A Last intake: Intake Last Liquid Date 07/04/24 Last Liquid Time 20:00 Last Solid Date 07/04/24 Last Solid Time 20:00 Social No alcohol and No tobacco Exam alert, oriented x 3, clear to auscultation bilaterally and regular rate & rhythm Airway Submandibular: within normal limits Cervical ROM: within normal limits Mallampati: Class II Dentition: full History/ROS No significant history except as noted and No significant complaints Pulmonary Shortness of Breath CV/HEM Anemia None reported Hepatic None reported GI Gastroesophageal Reflux Disease Metabolic Morbid Obesity and Thyroid Disease Musc/skel Lower Back Pain Neuropsych None reported Anesthetic Plan ASA status: 3 Anesthesia: Anesthesia Evaluation and MAC Risk of > 500 ml blood loss (7ml/kg in children): No Medications/Allergies Home Medications ?Medication ?Instructions ?Recorded ?Confirmed ?Last Taken ?Type omeprazole 20 mg capsule,delayed 20 mg PO DAILY 03/13/20 07/05/24 07/04/24 History release albuterol sulfate 90 mcg/actuation 2 puff inhalation Q6H PRN 06/18/22 07/05/24 07/04/24 Rx aerosol inhaler Shortness Of Breath Or Wheezing #8.5 grams tizanidine 4 mg capsule 4 mg PO Q6H PRN muscle spasticity 07/12/22 07/05/24 07/04/24 Rx #60 caps metoprolol succinate 25 mg 12.5 mg (1/2 x 25 mg) PO DAILY #45 01/27/24 07/05/24 07/04/24 Rx tablet,extended release 24 hr tabs nitroglycerin 0.4 mg sublingual 0.4 mg sublingual Q5M PRN chest 01/27/24 07/05/24 Unknown Rx tablet pain #30 tabs sertraline 100 mg tablet 200 mg (2 x 100 mg) PO DAILY #120 04/23/24 07/05/24 07/04/24 Rx tabs isosorbide mononitrate 30 mg 30 mg PO DAILY #90 tabs 05/17/24 07/05/24 07/04/24 Rx tablet,extended release 24 hr Vitamin C 1 tab PO DAILY 07/02/24 07/05/24 07/04/24 History atorvastatin 10 mg tablet 10 mg PO DAILY 07/02/24 07/05/24 07/04/24 History ferrous sulfate 325 mg (65 mg 325 mg PO DAILY 07/02/24 07/05/24 07/04/24 History iron) tablet levothyroxine 50 mcg tablet 50 mcg PO DAILY 07/02/24 07/05/24 07/04/24 History multivitamin 1 tab PO DAILY 07/02/24 07/05/24 07/04/24 History Allergies Allergy/AdvReac Type Severity Reaction Status Date / Time No Known Allergies Allergy Verified 07/02/24 08:22 Current Medications Generic Name Dose Route Start Last Admin Trade Name Freq PRN Reason Stop Dose Admin Sodium Chloride 1,000 mls @ 15 mls/hr 07/05/24 10:08 07/05/24 10:25 Sodium Chloride 0.9% IV 07/06/24 10:07 15 mls/hr .Q24H PRN Administration COLONOSCOPY FLUIDS PFSH Anesthesia Medical History Phlebitis after infusion Desmoid tumor Left breast Hypothyroidism Dyslipidemia Chronic GERD Surgical History Status post left breast lumpectomy (12/01/20) History of foot surgery History of nasal surgery History of cholecystectomy History of colonoscopy (03/05/21) History of esophagogastroduodenoscopy (EGD) Family History Denies family history of Anesthesia complication Bleeding disorder Social History Smoking and tobacco/nicotine status: never used tobacco/nicotine Alcohol intake: current Alcohol intake frequency: holidays/special occasions only Data Anesthesia Cardiac Studies: Echocardiogram 09/20/23 Sestamibi Stress Test (Cardiology) 12/28/23
[2024-07-05 11:11] VITALS: BP 114/69; PULSE 70; RESP 20; TEMP 36.3; O2SAT 91
[2024-07-05 11:33] VITALS: BP 130/78; PULSE 75; RESP 16; O2SAT 95
--- NOTE | 2024-07-05 11:40 | ANE.PACU2 ---
Inpatient post-anesthesia follow up: Airway intact: Yes Vital signs: Temperature 97.4 F Pulse Rate 75 Respiratory Rate 16 Blood Pressure 130/78 Pulse Oximetry 95 Oxygen Delivery Me thod Room Air Oxygen Flow Rate Fraction of Inspir ed Oxygen Hydration adequate: Yes Nausea and vomiting: No Pain level: 1 Mental status: Baseline
== END 2024-07-05 11:40 | disposition home or self-care (01) ==
PROVIDERS: PCP Family Medicine; Visit Provider Surgery
DX: K31.7 Polyp of stomach and duodenum (principal); R13.10 Dysphagia, unspecified; K44.9 Diaphragmatic hernia without obstruction or gangrene; E78.5 Hyperlipidemia, unspecified; K21.9 Gastro-esophageal reflux disease without esophagitis; E66.01 Morbid (severe) obesity due to excess calories; Z68.42 Body mass index [BMI] 45.0-49.9, adult; Z79.899 Other long term (current) drug therapy; Z79.890 Hormone replacement therapy
CPT/HCPCS: 43239; 43251; 88305; J2704; J7030

== ENCOUNTER → 2024-07-12 10:30 | Outpatient (BNVA) | payer OTHER, SELFPAY | PROVIDERS: PCP Family Medicine; Visit Provider Family Medicine | DX: D64.9 Anemia, unspecified (principal) | CPT/HCPCS: 83540; 85025; 86160; 86162; 86235; 86255; 86376 ==

== ENCOUNTER 2024-08-01 11:56 | Outpatient (CLI) | payer OTHER, SELFPAY | END 2024-08-01 11:57 | disposition home or self-care (01) | PROVIDERS: PCP Family Medicine; Referring Provider Family Medicine; Visit Provider Family Medicine | DX: G47.33 Obstructive sleep apnea (adult) (pediatric) (principal); G47.36 Sleep related hypoventilation in conditions classified elsewhere | CPT/HCPCS: G0399 ==

== ENCOUNTER → 2024-10-02 08:51 | Outpatient (BNVA) | payer OTHER, SELFPAY | PROVIDERS: PCP Family Medicine; Visit Provider Family Medicine | DX: D64.9 Anemia, unspecified (principal) | CPT/HCPCS: 83550; 85025; 85045 ==

== ENCOUNTER → 2024-10-15 14:37 | Outpatient (BNVA) | payer OTHER, SELFPAY | PROVIDERS: PCP Family Medicine; Visit Provider Family Medicine | DX: R53.83 Other fatigue (principal) | CPT/HCPCS: 80053; 85025; 85651; 86140 ==

== ENCOUNTER 2025-02-23 13:53 | Observation (INO) | payer OTHER, SELFPAY ==
[2025-02-23] VITALS (41 sets, daily range): BP systolic 120–170; BP diastolic 73–105; PULSE 70–96; RESP 15–20; TEMP 36.3–36.8; O2SAT 78–100; BMI 40.7; BMI 42.3
--- OUTSIDE RECORDS SUMMARY | 2025-02-23 14:00 | XMS_ITS | Encounter Summary ---
Author Organization [facility] Address [address] [place] [address] Care Team Providers Care Telegraph Mechanic Name Role Phone Molina Arroyo MD Primary Care Provider [phone] Encounter Details Date Type Department Care Team (Late st Contact Info) Description 12/02/2005 Outpatient Historical [facility] Breast [place] [address] [facility] [address] [place] [address] Mariluz Christian MD NO ADDRESS ON FILE Other Sign and Symptom in Breast (Primary Dx) Social History Tobacco Use Types Packs/Day Years Used Date Smoking Tobacco: Never Assessed Comments Unknown Sex and Gender Information Value Date Recorded Sex Assigned at Not on file Legal Sex Female 5:29 AM [employer] Gender Identity Not on file Sexual Orientation Not on file documented as of this encounter Plan of Treatment Not on file documented as of this encounter Visit Diagnoses Diagnosis Other sign and symptom in breast- Primary documented in this encounter Care Teams Telegraph Mechanic Relationship Specialty Start Date End Date Molina Arroyo MD [address] [place] [id number] PCP - General 12/02/05 documented as of this encounter
--- OUTSIDE RECORDS SUMMARY | 2025-02-23 14:00 | XMS_ITS | Clinical Summary ---
Author Organization [facility] Address [address] [place] [address] Care Team Providers Care Wheel Blocker Name Role Phone Molina Arroyo MD Primary Care Provider [phone] Allergies No known active allergies Medications LEVOTHYROXINE SODIUM (LEVOTHROID ORAL) Take by mouth. Activ e SERTRALINE HCL (ZOLOFT ORAL) Take by mouth. A ctive RED YEAST RICE EXTRACT ORAL Take by mouth. Ac tive ASCORBIC ACID (VITAMIN C ORAL) Take by mouth. Activ e ERGOCALCIFEROL, VITAMIN D2, (VITAMIN D ORAL) Take by mouth. Activ e VITAMIN B COMPLEX ORAL Take by mouth. Ac tive ALBUTEROL INHALATION Take by inhalation Uses PRN . Active LEVOTHYROXINE 50 mcg tablet 5 Active sertraline (ZOLOFT) 50 mg tablet 5 Active pantoprazole (PROTONIX) 40 mg Tablet, Delayed Release (E.C.) Take 1 Tab (40 mg) by mouth daily. 5 Active Active Problems Problem Noted Date Diagnosed Date Stress fracture foot 12/19/2009 Other bursitis disorders 12/19/2009 Plantar fasciitis 12/19/2009 Heel spur 12/19/2009 Immunizations Immunization Administration Dates Next Due (ADACEL/BOOSTRIX)(10 YR UP) TDAP VACCINE, 0.5ML, IM 06/14/2008 Family History Medical History Relation Name Comments Hemochromatosis Other 1 Father Ovarian Cancer Other 2 Relation Name Status Comments Other 1 Father Other 2 Social History Tobacco Use Types Packs/Day Years Used Date Smoking Tobacco: Never Alcohol Use Standard Drinks/Week Comments Yes 0 (1 standard drink = 0.6 oz pur e alcohol) rare Comments No Sex and Gender Information Value Date Recorded Sex Assigned at Not on file 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 Sex Female 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 Gender Identity Not on file Sexual Orientation Not on file 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 Not on file Not on file Last Filed Vital Signs Vital Sign Reading Time Taken Comments Blood Pressure 136/96 09/30/2014 9:05 AM CDT Pulse 88 09/30/2014 9:05 AM CDT Temperature 36.4 C (97.6 F) 08/27/2014 10:42 AM CDT Respiratory Rate 18 08/27/2014 11:38 AM CDT Oxygen Saturation 98% 09/30/2014 9:05 AM CDT Inhaled Oxygen Concentration - - Weight 135.2 kg (298 lb) 09/30/2014 9:05 AM CDT Height 167.6 cm (5' 6 ) 09/30/2014 9:05 AM CDT Body Mass Index 48.1 09/30/2014 9:05 AM CDT Plan of Treatment Health Maintenance Due Date Last Done Comments HPV/Cotest (21-29) 1981 CERVICAL CANCER SCREENING 1990 HPV/Cotest (30-65) 1990 PAP SMEAR 1990 COLORECTAL SCREENING 2005 Colorectal Cancer Screening 2005 FIT-DNA Q 3 years 2005 FIT/FOBT Q 1 year 2005 Flex Sig/CT Colonography Q 5 years 2005 BREAST CANCER SCREENING 01/26/2008 01/25/2007 ZOSTER VACCINE (1 of 2) 2010 DTAP/TDAP/TD VACCINES (2 - Td or Tdap) 06/14/2018 INFLUENZA VACCINE (#1) 2024 RSV VACCINE (60+ or ) (1 - 1-dose 75+ series) 08/18/2035 Insurance [employer] Advance Directives For more information, please contact: [phone] * Full Code (Latest Code Status on File) Date Activated Date Inactivated Comments 08/27/2014 10:35 AM 08/27/2014 1:53 PM Care Teams Wheel Blocker Relationship Specialty [place] [address] [place] [phone] PCP - General 12/02/05
--- OUTSIDE RECORDS SUMMARY | 2025-02-23 14:00 | XMS_ITS | Encounter Summary ---
Author Organization [facility] Address [address] [place] [address] Care Team Providers Care Veneer Taping Machine Offbearer Name Role Phone Molina Arroyo MD Primary Care Provider [phone] Encounter Details Date Type Department Care Team (Late st Contact Info) Description 12/24/2004 Outpatient Historical [facility] [address] [place] [address] Jorge A Moreno MD [address] 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
--- OUTSIDE RECORDS SUMMARY | 2025-02-23 14:00 | XMS_ITS | Encounter Summary ---
Author Organization [employer] [facility] Address [address] [place] [address] Care Team Providers Care Carton Stapler Name Role Phone Molina Arroyo MD Primary Care Provider [phone] Encounter Details Date Type Department Care Team (Late st Contact Info) Description 01/25/2007 Outpatient [facility] Breast Center [facility] [address] [place] [address] Molina Arroyo MD [address] [place] [phone] Social History Tobacco Use Types Packs/Day Years Used Date Smoking Tobacco: Never Assessed Comments Unknown Sex and Gender Information Value Date Recorded Sex Assigned at Not on file 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
--- OUTSIDE RECORDS SUMMARY | 2025-02-23 14:00 | XMS_ITS | Encounter Summary ---
Author Organization [facility] Address [address] [place] [address] Care Team Providers Care Brim And Crown Presser Name Role Phone Molina Arroyo MD Primary Care Provider [phone] Encounter Details Date Type Department Care Team (Latest Contact Info) Description 12/02/2005 Outpatient Historical [facility] Molina Arroyo MD [address] [place] [address] Other Screening Mammogram (Primary Dx) Social History Tobacco Use Types Packs/Day Years Used Date Smoking Tobacco: Never Assessed Comments Unknown Sex and Gender Information Value Date Recorded Sex Assigned at Not on file 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
--- OUTSIDE RECORDS SUMMARY | 2025-02-23 14:00 | XMS_ITS | Encounter Summary ---
Author Organization [facility] Address [address] [place] [address] Care Team Providers Care Yarn Spinner Name Role Phone Molina Arroyo MD Primary Care Provider [phone]- [phone] Encounter Details Date Type Department Care Team (Latest Contact Info) Description 11/24/2004 Outpatient Historical [facility] Breast [place] [address] [facility] [address] [place] [address] Gui Chester MD NO ADDRESS ON FILE SYMPTOMS IN BREAST NEC (Primary Dx) Social History Tobacco Use Types Packs/Day Years Used Date Smoking Tobacco: Never Assessed Comments Unknown Sex and Gender Information Value Date Recorded Sex Assigned at Not on file Legal Sex Female 5:29 AM JOINER Gender Identity Not on file Sexual Orientation Not on file documented as of this encounter Plan of Treatment Not on file documented as of this encounter Visit Diagnoses Diagnosis Other sign and symptom in breast- Primary documented in this encounter Care Teams Yarn Spinner Relationship Specialty Start Date End Date Molina Arroyo MD [address] [place] [phone] PCP - General 12/02/05 documented as of this encounter
--- OUTSIDE RECORDS SUMMARY | 2025-02-23 14:00 | XMS_ITS | Encounter Summary ---
Author Organization [facility] Address [address] [place] [address] Care Team Providers Care Clinical Documentation Developer Name Role Phone Molina Arroyo MD Primary Care Provider [phone] Encounter Details Date Type Department Care Team (Latest Contact Info) Description 01/25/2007 Outpatient Historical [facility] [address] [facility] [address] [place] [address] Geeta Ozuna MD NO ADDRESS ON FILE Other Screening Mammogram (Primary Dx) Social History Tobacco Use Types Packs/Day Years Used Date Smoking Tobacco: Never Assessed Comments Unknown Sex and Gender Information Value Date Recorded Sex Assigned at Not on file 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
--- OUTSIDE RECORDS SUMMARY | 2025-02-23 14:00 | XMS_ITS | Encounter Summary ---
Author Organization [facility] Address [address] [place] [address] Care Team Providers Care Opinion Polls Survey Worker Name Role Phone Molina Arroyo MD Primary Care Provider [phone] Encounter Details Date Type Department Care Team (Late st Contact Info) Description 02/15/2007 Inpatient Historical [facility] Endoscopy [place] [address] [place] [address] Kash Cisse MD [address] [place] [address] Disability Determination Services [place], [place] [address] Social History Tobacco Use Types Packs/Day Years Used Date Smoking Tobacco: Never Assessed Comments Unknown Sex and Gender Information Value Date Recorded Sex Assigned at Not on file 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
--- OUTSIDE RECORDS SUMMARY | 2025-02-23 14:00 | XMS_ITS | Encounter Summary ---
Author Organization [facility] Address [address] [place] [address] Care Team Providers Care Security Clerk Name Role Phone Molina Arroyo MD Primary Care Provider [phone] Encounter Details Date Type Department Care Team (Latest Contact Info) Description 05/26/2005 Outpatient Historical [facility] [address] [facility] [address] [place] [address] Mariluz Christian MD NO ADDRESS ON FILE Other Abnormal Findings on Radiological Examination of Breast (Primary Dx) Social History Tobacco Use Types Packs/Day Years Used Date Smoking Tobacco: Never Assessed Comments Unknown Sex and Gender Information Value Date Recorded Sex Assigned at Not on file 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
--- OUTSIDE RECORDS SUMMARY | 2025-02-23 14:00 | XMS_ITS | Encounter Summary ---
Author Organization [employer] [facility] Address [address] [place] [address] Care Team Providers Care Staff Radiographer Name Role Phone Molina Arroyo MD Primary Care Provider [phone] Encounter Details Date Type Department Care Team (Latest Contact Info) Description 11/24/2004 Outpatient Historical [facility] Gui Chester MD NO ADDRESS ON FILE Vik Stevens MD [address] [place] [phone] DIFFUS CYSTIC MASTOPATHY (Primary Dx) Social History Tobacco Use Types Packs/Day Years Used Date Smoking Tobacco: Never Assessed Comments Unknown Sex and Gender Information Value Date Recorded Sex Assigned at Not on file Legal Sex Female 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
--- OUTSIDE RECORDS SUMMARY | 2025-02-23 14:00 | XMS_ITS | Encounter Summary ---
Author Organization [facility] Address [address] [place] [address] Care Team Providers Care Nurse Case Management Name Role Phone Molina Arroyo MD Primary Care Provider [phone] Encounter Details Date Type Department Care Team (Late st Contact Info) Description 03/20/2007 Outpatient Historical [facility] Gastroenterology- [address] [place] [address] Kash Cisse MD [address] [place] [address] Disability Determination Services [place], [place] [address] Social History Tobacco Use Types Packs/Day Years Used Date Smoking Tobacco: Never Assessed Comments Unknown Sex and Gender Information Value Date Recorded Sex Assigned at Not on file 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
--- OUTSIDE RECORDS SUMMARY | 2025-02-23 14:00 | XMS_ITS | Encounter Summary ---
Author Organization [employer] [facility] Address [address] [place] [address] Care Team Providers Care Blank Driller Name Role Phone Molina Arroyo MD Primary Care Provider [phone]- [phone] Encounter Details Date Type Department Care Team (Latest Contact Info) Description 05/26/2005 Outpatient Historical [facility], Vik Anglin MD [address] [place] [address] Other Abnormal Findings on Radiological Examination of Breast (Primary Dx) Social History Tobacco Use Types Packs/Day Years Used Date Smoking Tobacco: Never Assessed Comments Unknown Sex and Gender Information Value Date Recorded Sex Assigned at Not on file 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
--- OUTSIDE RECORDS SUMMARY | 2025-02-23 14:00 | XMS_ITS | Clinical Summary ---
Author Organization [facility] Address [address] [place]: Epic Prelude ADT [place] [address] Care Team Providers Care Parachute Officer Name Role Phone Molina Arroyo MD Primary Care Provider [phone] Allergies No known active allergies Medications atorvastatin (LIPITOR) 10 mg tablet TAKE 1 TABLET BY MOUTH EVERY DAY FOR HYPERLIPIDEMIA 05/22/19 25 Active ferrous sulfate 325 mg (65 mg iron) tablet Take 1 Tablet by mouth 2 times daily. 05/25/19 25 Active isosorbide mononitrate (IMDUR) 30 mg Extended Release 24 hour tablet Take 1 Tablet by mouth daily. 07/24/19 25 Active metoprolol succinate (TOPROL XL) 25 mg Extended Release 24 hour tablet Take 0.5 Tablets by mouth daily. 07/24/19 25 Active sertraline (ZOLOFT) 100 mg tablet Take 1.5 Tablets by mouth daily. 05/22/19 25 Active tiZANidine (ZANAFLEX) 4 mg Capsule Take 4 mg by mouth. Active ascorbic acid (VITAMIN C) 100 mg Tablet, Chewable Take 100 mg by mouth. Active levothyroxine 50 mcg tablet Take 50 mcg by mouth daily in the morning. Active omeprazole (PriLOSEC) 10 mg Capsule, Delayed Release(E.C.) Take 10 mg by mouth daily. Active ondansetron (ZOFRAN ODT) 4 mg Tablet, Rapid Dissolve Take 1 Tablet (4 mg) by mouth every 8 hours as needed for Nausea/Emesis. Dissolve tablet on top of tongue, then swallow with saliva. 20 Tablet 08/28/19 25 Active Active Problems Problem Noted Date Diagnosed Date Plantar fasciitis 12/19/2009 Stress fracture foot 12/19/2009 Heel spur 12/19/2009 Other bursitis disorders 12/19/2009 Encounters Date Type Department Care Team Description 01/22/2025 External Device Data ST[facility] ABSTRACTION Provider, Abstract 01/02/2025 External Device Data [facility] ABSTRACTION Provider, Abstract 01/01/2025 External Device Data [facility] ABSTRACTION Provider, Abstract 12/26/2024 External Device Data ST[facility] ABSTRACTION Provider, Abstract 12/25/2024 External Device Data [facility] ABSTRACTION Provider, Abstract 11/27/2024 8:30 AM CDT Telephone Check Up [facility] Gen Spec Surg [address] [address] Calvin Walton PA Status post Nydia fundoplication (Primary Dx) from Last 3 Months Immunizations Immunization Administration Dates Next Due (ADACEL/BOOSTRIX)(10 YR UP) TDAP VACCINE, 0.5ML, IM 06/14/2008 Family History Medical History Relation Name Comments Ovarian Cancer Other 1 Hemochromatosis Other 2 Father Colon Cancer Neg Hx Relation Name Status Comments Other 1 Other 2 Father Social History Tobacco Use Types Packs/Day Years Used Date Smoking Tobacco: Never Tobacco Cessation:Counseling Given: Not Answered Alcohol Use Standard Drinks/Week Comments Yes 0 (1 standard drink = 0.6 oz pur e alcohol) Feeling Safe Answer Date Recorded Are you in a relationship wi th someone who hurts you emotionally and/or physically? No 08/27/2024 Food Insecurity Answer Date Recorded Patient needs follow up regardin 08/22/2024 Transportation Needs Answer Date Record ed Patient needs follow up regardin 08/22/2024 Utility Needs Answer Date Recorded Patient needs follow up regardin 08/22/2024 Comments No Sex and Gender Information Value Date Recorded Sex Assigned at Not on file Legal Sex Female 5:11 PM REGISTRY NURSE Gender Identity Not on file Sexual Orientation Not on file Last Filed Vital Signs Vital Sign Reading Time Taken Comments Blood Pressure 138/88 09/04/2024 11:30 AM CDT Pulse 103 09/04/2024 11:30 AM CDT Temperature 36.5 C (97.7 F) 08/28/2024 11:44 AM CDT Respiratory Rate 20 09/04/2024 11:3 0 AM CDT Oxygen Saturation 95% 09/04/2024 11: 30 AM CDT Inhaled Oxygen Concentration - - Weight 127.5 kg (281 lb 1.9 oz) 025 11:30 AM CDT Height 167.6 cm (5' 6 ) 09/04/2024 11:3 0 AM CDT Body Mass Index 45.37 09/04/2024 11:30 AM CDT Plan of Treatment Health Maintenance Due Date Last Done Comments Pre-Diabetes and Diabetes Screening 1960 HPV/Cotest (21-29) 1981 CERVICAL CANCER SCREENING 1990 HPV/Cotest (30-65) 1990 PAP SMEAR 1990 BREAST CANCER SCREENING 2000 COLORECTAL SCREENING 2005 Colorectal Cancer Screening 2005 FIT-DNA Q 3 years 2005 FIT/FOBT Q 1 year 2005 Flex Sig/CT Colonography Q 5 years 2005 RSV VACCINE (60+ or ) (1 - Risk 50-74 years 1-dose series) 2010 ZOSTER VACCINE (1 of 2) 2010 DTAP/TDAP/TD VACCINES (2 - Td or Tdap) 06/14/2018 INFLUENZA VACCINE (#1) 2024 COVID-19 Vaccine (3 - season) 2024, 04/04/2020 Medical Devices Implanted Type Area Subassembly Assembler Device Identifier Shelf Expiration Date Model / Serial / Lot Capsule [employer] s-0635 - [id number] Implanted:Qty: 1 on 08/22/2024 by Kash Lockwood MD at [facility] Other N/A: Esophagus [employer] COVIDIEN spring assembler. GIVEN 09/24/2025 [facility]-0635 / / [id number] Description:@ 29 cm [place] [address] Advance Directives For more information, please contact: [phone] * Full Code (Latest Code Status on File) Date Activated Date Inactivated Comments 08/27/2024 10:12 AM 08/28/2024 5:07 PM * Full Code Date Activated Date Inactivated Comments 08/27/2024 6:05 AM 08/27/2024 10:12 AM * Full Code Date Activated Date Inactivated Comments 08/22/2024 12:04 PM 08/22/2024 3:19 PM Care Teams Parachute Officer Relationship Specialty Start Date End Date Molina Arroyo MD [address] [place] [phone] PCP - General 12/02/05
--- NOTE | 2025-02-23 14:29 | XRR_ITS ---
PROCEDURE INFORMATION: Exam: XR Abdomen Exam date and time: 02/23/2025 2:58 PM Age: 64 years old Clinical indication: Abdominal pain; Prior surgery; Surgery date: 1-6 months; Surgery type: Hiatal hernia repair; Additional info: Abdominal pain/distention; Trapped gas; Hiatal hernia repair 08/2024 TECHNIQUE: Imaging protocol: Radiologic exam of the abdomen. Views: Frontal supine view of the abdomen. 1 View. COMPARISON: CT abdomen pelvis w con* [id number] 07/16/2021 12:52 PM FINDINGS: Gastrointestinal tract: There is marked gaseous distension of the stomach. No dilated bowel loops are seen. [id number] stool burden. Intraperitoneal space: There are right upper quadrant clips. Bones/joints: Unremarkable. XR/XR abdomen 1V* [id number] IMPRESSION: There is marked gaseous distension of the stomach.
--- NOTE | 2025-02-23 14:53 | W.ED.ABDPA2 ---
Documented by User: DAMARIS Cordero 02/23/25 18:08 HPI - Abdominal Pain General: Chief Complaint: Abdominal Pain Stated Complaint: Mid ABD Pain going to R side and Back Time Seen by Provider: 02/23/25 14:26 History of Present Illness: Patient is 64-year-old female status post Niesen fundoplication in August 2024, presents to the emergency room with abdominal pain, epigastric, swiping upper around to her right side of her back, excessive gas, nausea without emesis. Unable to have emesis due to Nydia publication. This has occurred x 1 day. She thinks her nausea has subsided at this time. She does not have a history of renal colic. No dysuria. She does admit to right sided flank pain. Associated Symptoms: Reports bloating, GI cramping, heartburn, nausea and other (Increased amount of gas); Denies chills, constipation, fever(s) and vomiting ((Cannot vomit)) Related Data Home Medications ?Medication ?Instructions ?Recorded ?Confirmed Vitamin C 1 tab PO BEDTIME 07/02/24 02/23/25 ferrous sulfate 325 mg (65 mg 325 mg PO BEDTIME 07/02/24 02/23/25 iron) tablet levothyroxine 50 mcg tablet 50 mcg PO BEDTIME 07/02/24 02/23/25 multivitamin 1 tab PO BEDTIME 07/02/24 02/23/25 acetaminophen 500 mg capsule 1,000 mg PO Q12H PRN osteoarthritis 09/25/24 02/23/25 alprazolam 0.25 mg tablet 0.25 mg PO BID PRN anxiety 02/23/25 02/23/25 atorvastatin 10 mg tablet 10 mg PO BEDTIME 02/23/25 02/23/25 metoprolol succinate 25 mg 12.5 mg PO BEDTIME 02/23/25 02/23/25 tablet,extended release 24 hr sertraline 100 mg tablet 100 mg PO BEDTIME 02/23/25 02/23/25 Previous Rx's ?Medication ?Instructions ?Recorded albuterol sulfate 90 mcg/actuation 2 puff inhalation Q6H PRN 06/18/22 aerosol inhaler Shortness Of Breath Or Wheezing #8.5 grams tizanidine 4 mg capsule 4 mg PO Q6H PRN muscle spasticity 07/12/22 #60 caps nitroglycerin 0.4 mg sublingual 0.4 mg sublingual Q5M PRN chest 01/27/24 tablet pain #30 tabs auto titrating c-pap 6-14 #1 ea 08/21/24 aluminum-mag hydroxide-simethicone 10 ml PO QID PRN dyspepsia #3,000 02/24/25 200 mg-200 mg-20 mg/5 mL oral susp mL (Maalox Advanced) omeprazole 20 mg capsule,delayed 20 mg PO DAILY Heartburn 90 days 02/24/25 release #0 caps Allergies Allergy/AdvReac Type Severity Reaction Status Date / Time No Known Allergies Allergy Verified 11/13/24 15:26 Review of Systems Const: Denies: fever(s), chills, body aches, change in weight or fatigue Card: Denies: chest pain, palpitations, irregular heart rhythm, swelling of feet/ankles, lightheadedness, dyspnea on exertion or leg pain with exertion Resp: Denies: dyspnea GI: Reports: abdominal pain, nausea, heartburn, bloating, GI cramping and other (Increased amount of gas); Denies: vomiting ((Cannot vomit)), dysphagia or constipation Musc: Denies: extremity swelling PFSH ED PFSH: Medical History (Updated 02/23/25 @ 17:38 by Teresa Mata NP) CAD (coronary artery disease) Positive antinuclear antibody Polyarthralgia Obstructive sleep apnea Phlebitis after infusion Desmoid tumor Left breast Hypothyroidism Dyslipidemia Chronic GERD Surgical History Status post left breast lumpectomy (12/01/20) History of foot surgery History of nasal surgery History of cholecystectomy History of colonoscopy (03/05/21) History of esophagogastroduodenoscopy (EGD) Family History Denies family history of Anesthesia complication Bleeding disorder Social History Smoking and tobacco/nicotine status: never used tobacco/nicotine Alcohol intake: current Alcohol intake frequency: holidays/special occasions only Substance/Drug Use: never Physical Exam Const: COMMON NORMALS: no acute distress, patient oriented x3 and alert GENERAL APPEARANCE: cooperative ORIENTATION/CONSCIOUSNESS: Yes oriented to person, Yes oriented to place and Yes oriented to time HENMT: COMMON NORMALS: normocephalic, atraumatic, hearing grossly normal bilaterally, external ears normal, Normal external nose present and moist oral mucous membranes HEAD & SCALP: normocephalic and atraumatic FACE & SINUS: no edema NOSE: Normal external nose present, Normal nares present and No nasal discharge present EXTERNAL EAR: Yes external ears normal MOUTH: lip normal and other (no oral ulcers) Eye: COMMON NORMALS: EOMs intact bilaterally, conjunctivae normal and no scleral icterus GENERAL EYE: appearance normal, both eyes and all related structures PERIORBITAL: periorbital findings normal CONJUNCTIVA: Yes conjunctivae normal Neck/C-Spine: GENERAL: Yes normal visual inspection, Yes trachea midline and No Mass present (neck) CERVICAL SPINE: Yes cervical ROM normal Lymph: LYMPHATIC: no lymphadenopathy noted and no lymphedema noted Resp: COMMON NORMALS: normal respiratory effort, No use of accessory muscles and clear to auscultation bilaterally EFFORT & INSPECTION: Yes able to speak in complete sentences, No respiratory distress and No stridor AUSCULTATION: clear to auscultation bilaterally, no crackles, no rales and no wheezes Cardio: COMMON NORMALS: S1 normal heart sound present and S2 normal heart sound present HEART SOUNDS: S1 normal heart sound present and S2 normal heart sound present GI: COMMON NORMALS: Soft to palpation and No hepatosplenomegaly present AUSCULTATION: Yes Hyperactive bowel sounds present PALPATION: Yes Soft to palpation, Yes Tenderness to palpation present (GI) (epigastrum) Details: RUQ and Yes No hepatosplenomegaly present RECTAL EXAM: deferred : BLADDER/KIDNEY EXAM: Yes CVA tenderness on the right Back/Pelvis: GENERAL BACK: Yes CVA tenderness THORACIC SPINE/UPPER BACK: Yes normal to inspection Extremity: COMMON NORMALS: no clubbing, cyanosis or edema Neuro: COMMON NORMALS: patient oriented x3, moves all extremities and no focal motor deficits SENSORIUM/ORIENTATION: Yes alert, Yes oriented to person, Yes oriented to place and Yes oriented to time MOTOR EXAM: Motor fasciculations not present and No Motor abnormalities not present Psych: COMMON NORMALS: mental status grossly normal, Normal thought process present, cooperative, normal affect, speech normal and activity/motor behavior normal SPEECH: Yes normal speech THOUGHT PROCESS: Normal thought process present Skin: GENERAL SKIN EXAM: no ecchymo, no erythema and no petechiae HAIR: without scarring alopecia Course Reevaluation(s): Reevaluation #1: Having difficulty again with abdominal pain and nausea Consultations: Consultation #1: Discussed with Dr. Foster, accepted obs if surgery consult will agree Consultation #2: Discussed with Dr. Arriaga. We do not do Nydia fundoplication's here, however he does know about them, and is able to consult Vital Signs: Vital signs: Vital Signs Temperature 97.9 F 02/24/25 13:07 Pulse Rate 69 02/24/25 13:07 Respiratory Rate 17 02/24/25 13:07 Blood Pressure 146/86 02/24/25 13:07 Pulse Oximetry 95 02/24/25 13:07 Oxygen Delivery Me thod Room Air 02/24/25 11:35 MDM - Abdominal Pain Medical Decision Making X-ray shows SBO. Will advance to IV, CT with and without contrast, gut rest, NG, morphine, Zofran Medical Records I reviewed the patient's medical records. Lab Data I reviewed the patient's lab results. 02/24/25 03:22 02/24/25 03:22 Labs/Radiology: Radiology Impressions Abdomen X-Ray 02/23/25 14:29 IMPRESSION: There is marked gaseous distension of the stomach. Abdomen/Pelvis CT 02/23/25 15:17 IMPRESSION: Abdominal pain is difficult to explain. status post Nydia fundoplication procedure. Status post cholecystectomy. L3 vertebral body hemangioma, unchanged. Moderate air distension of the stomach. No evidence of small bowel obstruction. Normal appendix. No evidence of constipation, diverticulitis. Chest X-Ray 02/23/25 17:48 IMPRESSION: Status post nasogastric suction tube placement with tip in the cardiac portion of the stomach. The side-hole is in the body portion of the stomach, in adequate location. Moderate air distension of the stomach. Laboratory Results WBC 6.77 10^3/uL (3.29-11.43) 02/23/25 14:49 RBC 5.29 10^6/uL (3.85-5.65) 02/23/25 14:49 Hgb 14.50 g/dL (11.27-16.99) 02/23/25 14:49 Hct 44.9 % (36-47) 02/23/25 14:49 MCV 84.9 fl (85-98) L 02/23/25 14:49 MCH 27.4 pg (27-33) 02/23/25 14:49 MCHC 32.3 g/dL (30-55) 02/23/25 14:49 RDW 15.9 % (12.1-15.1) H 02/23/25 14:49 Plt Count 151 10^3/cmm (157-399) L 02/23/25 14:49 MPV 9.1 fL (7.4-10.4) 02/23/25 14:49 Neut % (Auto) 66.9 % 02/23/25 14:49 Lymph % (Auto) 21.9 % 02/23/25 14:49 Phillips % (Auto) 8.1 % 02/23/25 14:49 Eos % (Auto) 2.4 % 02/23/25 14:49 Baso % (Auto) 0.6 % 02/23/25 14:49 Neut # (Auto) 4.53 10^3/uL (1.8-7.7) 02/23/25 14:49 Lymph # (Auto) 1.5 10^3/uL (0.8-4.8) 02/23/25 14:49 Phillips # (Auto) 0.6 10^3/uL (0.2-0.9) 02/23/25 14:49 Eos # (Auto) 0.2 10^3/uL (0.0-0.8) 02/23/25 14:49 Baso # (Auto) 0.0 10^3/uL (0.0-0.1) 02/23/25 14:49 Nucleated RBC % (auto) 0 % 02/23/25 14:49 Nucleated RBCs # 0.0 /100WBC 02/23/25 14:49 Sodium 139 mmol/L (136-145) 02/23/25 14:49 Potassium 4.1 mmol/L (3.5-5.1) 02/23/25 14:49 Chloride 104 mmol/L (98-107) 02/23/25 14:49 Carbon Dioxide 24 mmol/L (22-29) 02/23/25 14:49 Anion Gap 15.1 (5-19) 02/23/25 14:49 BUN 16 mg/dL (8-23) 02/23/25 14:49 Creatinine 0.9 mg/dL (0.5-0.9) 02/23/25 14:49 GFR Calculation 63.0 mL/min (90-130) L 02/23/25 14:49 Glucose 111 mg/dL (65-115) 02/23/25 14:49 Calculated Osmolality 290 mOsm/kg (285-295) 02/23/25 14:49 Calcium 10.0 mg/dL (8.5-10.5) 02/23/25 14:49 Total Bilirubin 0.3 mg/dL (0.15-1.2) 02/23/25 14:49 AST 35 U/L (0-32) H 02/23/25 14:49 ALT 27 U/L (0-33) 02/23/25 14:49 Alkaline Phosphatase 126 U/L (35-105) H 02/23/25 14:49 Total Protein 7.6 g/dL (6.6-8.7) 02/23/25 14:49 Albumin 4.1 g/dL (3.5-5.2) 02/23/25 14:49 Globulin 3.5 g/dL (1.3-4.6) 02/23/25 14:49 Triglycerides 143 mg/dL (0-150) 02/23/25 14:49 Cholesterol 196 mg/dL (0-200) 02/23/25 14:49 LDL Cholesterol, Calc 107 mg/dL (50-129) 02/23/25 14:49 HDL Cholesterol 60 mg/dL (60-100) 02/23/25 14:49 LDL/HDL Ratio 1.78 RATIO (0.00-3.22) 02/23/25 14:49 Cholesterol/HDL Ratio 3.27 mg/dL (0.0-4.40) 02/23/25 14:49 Lipase 47 U/L (13-60) 02/23/25 14:49 TSH 2.85 uIU/mL (0.27-4.20) 02/23/25 14:49 Urine Color Yellow (Yellow) 02/23/25 15:32 Urine Appearance Clear (CLEAR) 02/23/25 15:32 Urine pH 5.0 (5-7) 02/23/25 15:32 Ur Specific [place] 1.020 (1.005-1.030) 02/23/25 15:32 Urine Protein Negative (Negative) 02/23/25 15:32 Urine Glucose (UA) Negative (Normal) 02/23/25 15:32 Urine Ketones Negative (Negative) 02/23/25 15:32 Urine Blood Negative (Negative) 02/23/25 15:32 Urine Nitrate Negative (Negative) 02/23/25 15:32 Urine Bilirubin Negative (Negative) 02/23/25 15:32 Urine Urobilinogen 0.2 mg/dL (Negative) 02/23/25 15:32 Ur Leukocyte Esterase Negative (Negative) 02/23/25 15:32 Urine RBC 0-2 /hpf (0-2) 02/23/25 15:32 Urine WBC 0-5 /hpf (0-5) 02/23/25 15:32 Ur Squamous Epith Cells 0-5 /hpf (0-5) 02/23/25 15:32 Calcium Oxalate Crystal 15-25 /hpf H 02/23/25 15:32 Amorphous Sediment Not Reportable 02/23/25 15:32 Urine Bacteria None seen /hpf (NONE) 02/23/25 15:32 Hyaline Casts 0.40 /lpf 02/23/25 15:32 All radiology interpretation(s) finalized by discharge Discharge Plan Discharge Patient Disposition: Placed in Observation Admit Provider: Lester Foster Clinical Impression: Acute distention of stomach Discharge Diet: Advance as tolerated, Low Cholesterol and GI Soft Discharge Activity: Resume usual activity Coding Level of Care Code ED Furnace Operator And Tender for Chg Fwd Documented by User: Sera Medina MD 02/25/25 06:20 HPI - Abdominal Pain General: Chief Complaint: Abdominal Pain Stated Complaint: Mid ABD Pain going to R side and Back Time Seen by Provider: 02/23/25 14:26 Related Data Home Medications ?Medication ?Instructions ?Recorded ?Confirmed Vitamin C 1 tab PO BEDTIME 07/02/24 02/23/25 ferrous sulfate 325 mg (65 mg 325 mg PO BEDTIME 07/02/24 02/23/25 iron) tablet levothyroxine 50 mcg tablet 50 mcg PO BEDTIME 07/02/24 02/23/25 multivitamin 1 tab PO BEDTIME 07/02/24 02/23/25 acetaminophen 500 mg capsule 1,000 mg PO Q12H PRN osteoarthritis 09/25/24 02/23/25 alprazolam 0.25 mg tablet 0.25 mg PO BID PRN anxiety 02/23/25 02/23/25 atorvastatin 10 mg tablet 10 mg PO BEDTIME 02/23/25 02/23/25 metoprolol succinate 25 mg 12.5 mg PO BEDTIME 02/23/25 02/23/25 tablet,extended release 24 hr sertraline 100 mg tablet 100 mg PO BEDTIME 02/23/25 02/23/25 Previous Rx's ?Medication ?Instructions ?Recorded albuterol sulfate 90 mcg/actuation 2 puff inhalation Q6H PRN 06/18/22 aerosol inhaler Shortness Of Breath Or Wheezing #8.5 grams tizanidine 4 mg capsule 4 mg PO Q6H PRN muscle spasticity 07/12/22 #60 caps nitroglycerin 0.4 mg sublingual 0.4 mg sublingual Q5M PRN chest 01/27/24 tablet pain #30 tabs auto titrating c-pap 6-14 #1 ea 08/21/24 aluminum-mag hydroxide-simethicone 10 ml PO QID PRN dyspepsia #3,000 02/24/25 200 mg-200 mg-20 mg/5 mL oral susp mL (Maalox Advanced) omeprazole 20 mg capsule,delayed 20 mg PO DAILY Heartburn 90 days 02/24/25 release #0 caps Allergies Allergy/AdvReac Type Severity Reaction Status Date / Time No Known Allergies Allergy Verified 11/13/24 15:26 [facility] ED PFSH: Medical History (Updated 02/23/25 @ 17:38 by Teresa Mata NP) CAD (coronary artery disease) Positive antinuclear antibody Polyarthralgia Obstructive sleep apnea Phlebitis after infusion Desmoid tumor Left breast Hypothyroidism Dyslipidemia Chronic GERD Surgical History Status post left breast lumpectomy (12/01/20) History of foot surgery History of nasal surgery History of cholecystectomy History of colonoscopy (03/05/21) History of esophagogastroduodenoscopy (EGD) Family History Denies family history of Anesthesia complication Bleeding disorder Social History Smoking and tobacco/nicotine status: never used tobacco/nicotine Alcohol intake: current Alcohol intake frequency: holidays/special occasions only Substance/Drug Use: never Course Vital Signs: Vital signs: Vital Signs Temperature 97.9 F 02/24/25 13:07 Pulse Rate 69 02/24/25 13:07 Respiratory Rate 17 02/24/25 13:07 Blood Pressure 146/86 02/24/25 13:07 Pulse Oximetry 95 02/24/25 13:07 Oxygen Delivery Me thod Room Air 02/24/25 11:35 MDM - Abdominal Pain Medical Decision Making X-ray shows SBO. Will advance to IV, CT with and without contrast, gut rest, NG, morphine, Zofran The case was discussed with the midlevel provider. Evaluation and management service: I agree with the evaluation and management decisions made in this patient's care. Results interpretation: I agree with the study interpretation in this patient's care, I agree with the documentation of the study interpretation. Lab Data 02/24/25 03:22 02/24/25 03:22 Labs/Radiology: Radiology Impressions Abdomen X-Ray 02/23/25 14:29 IMPRESSION: There is marked gaseous distension of the stomach. Abdomen/Pelvis CT 02/23/25 15:17 IMPRESSION: Abdominal pain is difficult to explain. status post Nydia fundoplication procedure. Status post cholecystectomy. L3 vertebral body hemangioma, unchanged. Moderate air distension of the stomach. No evidence of small bowel obstruction. Normal appendix. No evidence of constipation, diverticulitis. Chest X-Ray 02/23/25 17:48 IMPRESSION: Status post nasogastric suction tube placement with tip in the cardiac portion of the stomach. The side-hole is in the body portion of the stomach, in adequate location. Moderate air distension of the stomach. Laboratory Results WBC 6.77 10^3/uL (3.29-11.43) 02/23/25 14:49 RBC 5.29 10^6/uL (3.85-5.65) 02/23/25 14:49 Hgb 14.50 g/dL (11.27-16.99) 02/23/25 14:49 Hct 44.9 % (36-47) 02/23/25 14:49 MCV 84.9 fl (85-98) L 02/23/25 14:49 MCH 27.4 pg (27-33) 02/23/25 14:49 MCHC 32.3 g/dL (30-55) 02/23/25 14:49 RDW 15.9 % (12.1-15.1) H 02/23/25 14:49 Plt Count 151 10^3/cmm (157-399) L 02/23/25 14:49 MPV 9.1 fL (7.4-10.4) 02/23/25 14:49 Neut % (Auto) 66.9 % 02/23/25 14:49 Lymph % (Auto) 21.9 % 02/23/25 14:49 Phillips % (Auto) 8.1 % 02/23/25 14:49 Eos % (Auto) 2.4 % 02/23/25 14:49 Baso % (Auto) 0.6 % 02/23/25 14:49 Neut # (Auto) 4.53 10^3/uL (1.8-7.7) 02/23/25 14:49 Lymph # (Auto) 1.5 10^3/uL (0.8-4.8) 02/23/25 14:49 Phillips # (Auto) 0.6 10^3/uL (0.2-0.9) 02/23/25 14:49 Eos # (Auto) 0.2 10^3/uL (0.0-0.8) 02/23/25 14:49 Baso # (Auto) 0.0 10^3/uL (0.0-0.1) 02/23/25 14:49 Nucleated RBC % (auto) 0 % 02/23/25 14:49 Nucleated RBCs # 0.0 /100WBC 02/23/25 14:49 Sodium 139 mmol/L (136-145) 02/23/25 14:49 Potassium 4.1 mmol/L (3.5-5.1) 02/23/25 14:49 Chloride 104 mmol/L (98-107) 02/23/25 14:49 Carbon Dioxide 24 mmol/L (22-29) 02/23/25 14:49 Anion Gap 15.1 (5-19) 02/23/25 14:49 BUN 16 mg/dL (8-23) 02/23/25 14:49 Creatinine 0.9 mg/dL (0.5-0.9) 02/23/25 14:49 GFR Calculation 63.0 mL/min (90-130) L 02/23/25 14:49 Glucose 111 mg/dL (65-115) 02/23/25 14:49 Calculated Osmolality 290 mOsm/kg (285-295) 02/23/25 14:49 Calcium 10.0 mg/dL (8.5-10.5) 02/23/25 14:49 Total Bilirubin 0.3 mg/dL (0.15-1.2) 02/23/25 14:49 AST 35 U/L (0-32) H 02/23/25 14:49 ALT 27 U/L (0-33) 02/23/25 14:49 Alkaline Phosphatase 126 U/L (35-105) H 02/23/25 14:49 Total Protein 7.6 g/dL (6.6-8.7) 02/23/25 14:49 Albumin 4.1 g/dL (3.5-5.2) 02/23/25 14:49 Globulin 3.5 g/dL (1.3-4.6) 02/23/25 14:49 Triglycerides 143 mg/dL (0-150) 02/23/25 14:49 Cholesterol 196 mg/dL (0-200) 02/23/25 14:49 LDL Cholesterol, Calc 107 mg/dL (50-129) 02/23/25 14:49 HDL Cholesterol 60 mg/dL (60-100) 02/23/25 14:49 LDL/HDL Ratio 1.78 RATIO (0.00-3.22) 02/23/25 14:49 Cholesterol/HDL Ratio 3.27 mg/dL (0.0-4.40) 02/23/25 14:49 Lipase 47 U/L (13-60) 02/23/25 14:49 TSH 2.85 uIU/mL (0.27-4.20) 02/23/25 14:49 Urine Color Yellow (Yellow) 02/23/25 15:32 Urine Appearance Clear (CLEAR) 02/23/25 15:32 Urine pH 5.0 (5-7) 02/23/25 15:32 Ur Specific [place] 1.020 (1.005-1.030) 02/23/25 15:32 Urine Protein Negative (Negative) 02/23/25 15:32 Urine Glucose (UA) Negative (Normal) 02/23/25 15:32 Urine Ketones Negative (Negative) 02/23/25 15:32 Urine Blood Negative (Negative) 02/23/25 15: Urine Nitrate Negative (Negative) 02/23/25 15: Urine Bilirubin Negative (Negative) 02/23/25 15:32 Urine Urobilinogen 0.2 mg/dL (Negative) 02/23/25 15:32 Ur Leukocyte Esterase Negative (Negative) 02/23/25 15:32 Urine RBC 0-2 /hpf (0-2) 02/23/25 15:32 Urine WBC 0-5 /hpf (0-5) 02/23/25 15:32 Ur Squamous Epith Cells 0-5 /hpf (0-5) 02/23/25 15:32 Calcium Oxalate Crystal 15-25 /hpf H 02/23/25 15:32 Amorphous Sediment Not Reportable 02/23/25 15:32 Urine Bacteria None seen /hpf (NONE) 02/23/25 15:32 Hyaline Casts 0.40 /lpf 02/23/25 15:32 Discharge Plan Discharge Patient Disposition: Placed in Observation Admit Provider: Lester Foster Clinical Impression: Acute distention of stomach Discharge Diet: Advance as tolerated, Low Cholesterol and GI Soft Discharge Activity: Resume usual activity Coding Level of Care Code ED Furnace Operator And Tender for Kenny Hamilton
[2025-02-23 14:54] LABS: Hematocrit 44.9 % (36-47); Hemoglobin 14.50 g/dL (11.27-16.99); Mean Corpuscular HGB Conc 32.3 g/dL (30-55); Mean Corpuscular Hemoglobin 27.4 pg (27-33); Mean Corpuscular Volume 84.9 fl (85-98); Nucleated Red Blood Cells % 0 %; Platelet Count 151 10^3/cmm (157-399); Red Blood Count 5.29 10^6/uL (3.85-5.65); White Blood Count 6.77 10^3/uL (3.29-11.43)
[2025-02-23 15:14] LABS: Alanine Aminotransferase 27 U/L (0-33); Albumin Level 4.1 g/dL (3.5-5.2); Alkaline Phosphatase 126 U/L (35-105); Anion Gap 15.1 (5-19); Aspartate Amino Transferase 35 U/L (0-32); Blood Urea Nitrogen 16 mg/dL (8-23); Calcium 10.0 mg/dL (8.5-10.5); Carbon Dioxide 24 mmol/L (22-29); Chloride 104 mmol/L (98-107); Globulin 3.5 g/dL (1.3-4.6); Glucose 111 mg/dL (65-115); Lipase 47 U/L (13-60); Osmolality Calculated 290 mOsm/kg (285-295); Potassium 4.1 mmol/L (3.5-5.1); Sodium 139 mmol/L (136-145); Total Protein 7.6 g/dL (6.6-8.7)
--- NOTE | 2025-02-23 15:17 | CTR_ITS ---
PROCEDURE INFORMATION: Exam: CT Abdomen And Pelvis With Contrast Exam date and time: 02/23/2025 3:27 PM Age: 64 years old Clinical indication: Abdominal pain; Prior surgery; Surgery date: 6+ months; Surgery type: Dwight fundoplication 08/2024, gb; Additional info: Abdominal pain, obstrution, dwight fundoplication 08/2024, status postcholecystectomy TECHNIQUE: Imaging protocol: Computed tomography of the abdomen and pelvis with contrast. 2 image(s) are submitted. Radiation optimization: All CT scans at this facility use at least one of these dose optimization techniques: automated exposure control; mA and/or kV adjustment per patient size (includes targeted exams where dose is matched to clinical indication); or iterative reconstruction. Contrast material: OMNI 350; Contrast volume: 100 ml; Contrast route: INTRAVENOUS (IV); COMPARISON: CT abdomen pelvis w con* [id number] 07/16/2021 12:52 PM RADIATION DOSE METRICS: Total DLP (mGy-cm): 1251.53 FINDINGS: Liver: Normal. No mass. Gallbladder and biliary ducts: See Intraperitoneal space finding. Pancreas: Normal. No ductal dilation. Spleen: Normal. No splenomegaly. Adrenal glands: Normal. No mass. Kidneys and ureters: See Reproductive finding. Stomach and bowel: See Intraperitoneal space finding. Appendix: See Intraperitoneal space finding. Intraperitoneal space: abdominal pain is difficult to explain. status post Dwight fundoplication procedure. Status post cholecystectomy. L3 vertebral body hemangioma, unchanged. Moderate air distension of the stomach. No evidence of small bowel obstruction. Normal appendix. No evidence of constipation, diverticulitis. Vasculature: Unremarkable. No abdominal aortic aneurysm. Lymph nodes: Unremarkable. No enlarged lymph nodes. Urinary bladder: Unremarkable as visualized. Reproductive: Uterus is unremarkable. Adnexa and bilateral urinary tracts are unremarkable. There are 2 punctate 1 mm lower pole left renal pelvis calculi without obstruction. No change in wide mouth fat containing umbilical hernia. Bones/joints: See Intraperitoneal space finding. Soft tissues: See Reproductive finding. CT/CT abdomen pelvis w con* [id number] IMPRESSION: Abdominal pain is difficult to explain. status post Dwight fundoplication procedure. Status post cholecystectomy. L3 vertebral body hemangioma, unchanged. Moderate air distension of the stomach. No evidence of small bowel obstruction. Normal appendix. No evidence of constipation, diverticulitis.
[2025-02-23 15:42] LABS: Glucose Urine UA Negative (Normal); Nitrate Urine Negative (Negative); Specific Gravity, Urine 1.020 (1.005-1.030)
[2025-02-23 15:45] LABS: Add Urine Microscopic? YES
[2025-02-23] MEDS: ondansetron 2 mg/ML SDV 2 mL 4 MG IVP (15:52)
[2025-02-23] MEDS: morphine 4 mg/mL SDV 1 mL IM (15:52)
[2025-02-23 15:59] LABS: UA Slide Review UA Slide Review Perf
--- NOTE | 2025-02-23 16:07 | PC.NURSE ---
Order for charcoal DC in the MAR per provider Wittke order.
[2025-02-23] MEDS: HYDROmorphone 0.5 MG/0.5 ML INJ 1 MG IVP (17:02)
--- NOTE | 2025-02-23 17:17 | P.HP_ITS ---
<Statement entered by Lester Foster MD - 02/24/25 10:54> Patient case discussed with ED provider and reviewed and discussed with CARSON including E&M. Providers/Chief Complaint 2 Admitting Physician: Dr. Foster Primary Care Provider: Molina Arroyo MD Chief Complaint: Mid ABD Pain going to R side and Back History of Present Illness Shu Tolentino is a 64 year old female w/ pmhx GERD, hypothyroidism, THEODORE, dyslipidemia, s/p niesen fundoplication (08/2024) and presents with ABD/epigastric pain radiating to right upper side of her back, with associated signs and symptoms of excessive gas, and nausea x 1 day. Patient reports she ate broccoli yesterday and began passing gas more frequently. This morning when she woke up she was very bloated and began having severe abdominal pain and nausea. Patient reports she has had similar signs/symptoms of this in the past but not as severe. Patient to be admitted to hospitalist services with general surgery consultation service for further medical management and care. While in ED a CBC, CMP, UA, lipase was obtained, reviewed and results as follows: MCV 84.9, RDW 15.9, Plt 151. GFR 63. AST 35, ALT 27, alk phos 126. Lipase 47. UA negative for UTI. While in ED the following medications were administered: Dilaudid 1 mg IVP, Zofran 4 mg IVP, morphine 4 mg IM x 1. NG tube placed in the ED. Review of Systems 2 General: Reports: 10 or more systems reviewed and unremarkable except in HPI and below Medications/Allergies Home Medications ?Medication ?Instructions ?Recorded ?Confirmed ?Last Taken ?Type omeprazole 20 mg capsule,delayed 20 mg PO DAILY 11/13/24 07/04/24 History release albuterol sulfate 90 mcg/actuation 2 puff inhalation Q 6H PRN 06/18/22 11/13/24 07/04/24 Rx aerosol inhaler Shortness Of Breath Or Wheez ing #8.5 grams tizanidine 4 mg capsule 4 mg PO Q6H PRN muscle spast icity 07/12/22 11/13/24 07/04/24 Rx #60 caps nitroglycerin 0.4 mg sublingual 0.4 mg sublingual Q5M PRN chest 01/27/24 11/13/24 Unknown Rx tablet pain #30 tabs Vitamin C 1 tab PO DAILY 07/02/24/11/2907/04/24 History ferrous sulfate 325 mg (65 mg 325 mg PO DAILY 07/02/24 11/13/24 07/04/24 History iron) tablet levothyroxine 50 mcg tablet 50 mcg PO DAILY 07/02/24 0 11/13/24 07/04/24 History multivitamin 1 tab PO DAILY 07/02/2411/2907/04/24 History auto titrating c-pap 6-14 #1 ea 08/21/24 10/17/24 Unkn own Rx acetaminophen 500 mg capsule 1,000 mg PO .[id number] 11/13/24 Unknown History osteoarthritis alprazolam 0.25 mg tablet 0.25 mg PO BID PRN anxiety 1 04/26/24 02/23/25 Unknown History atorvastatin 10 mg tablet 10 mg PO BEDTIME 02/23/2502/22/25 20:00 History metoprolol succinate 25 mg 12.5 mg PO BEDTIME 02/23/25 02/23/25 02/22/25 20:00 History tablet,extended release 24 hr sertraline 100 mg tablet 100 mg PO BEDTIME 02/23/25 1 04/26/24 02/22/25 20:00 History Allergies Allergy/AdvReac Type Severity Reaction Status Date / Time No Known Allergies Allergy Verified 11/13/24 15:26 PFSH Acute 2 PFSH: Medical History (Updated 02/23/25 @ 17:38 by Teresa Mata NP) CAD (coronary artery disease) Positive antinuclear antibody Polyarthralgia Obstructive sleep apnea Phlebitis after infusion Desmoid tumor Left breast Hypothyroidism Dyslipidemia Chronic GERD Surgical History Status post left breast lumpectomy (12/01/20) History of foot surgery History of nasal surgery History of cholecystectomy History of colonoscopy (03/05/21) History of esophagogastroduodenoscopy (EGD) Family History Denies family history of Anesthesia complication Bleeding disorder Social History Smoking and tobacco/nicotine status: never used tobacco/nicotine Alcohol intake: current Alcohol intake frequency: holidays/special occasions only Substance/Drug Use: never Vitals/I&O/Wt Last Vital Signs Temp 97.4 F L 02/23/25 13:57 Pulse 76 02/23/25 16:04 Resp 18 02/23/25 16:04 BP 138/82 02/23/25 16:04 Pulse Ox 88 L 02/23/25 17:00 O2 Del Method Room Air 02/23/25 16:04 Weight last 48 hrs Weight 117.934 kg Physical Exam 2 Narrative: General: A&Ox4, no apparent distress, on room air. HEENT: Normo-cephalic, atraumatic, grossly unremarkable exam Cardio: NSR, normal S1-S2 without any murmurs, rubs, or gallops and JVD normal Respiratory: Clear to bilateral upper and lower lobes on auscultation GI: Abd soft, non-tender, non-distended, normo-active bowel sounds present NG tube in place. Neuro: Moves all extremities, no sensory deficits, Normal speech Behavior: Appropriate and cooperative Extremities: Adequate palpable pulses. No clubbing, cyanosis or edema, Full ROM Data 02/23/25 14:49 02/23/25 14:49 Other Labs: 02/23: Abd/pelvis CT: Reviewed and results as follows: Abdominal pain is difficult to explain. status post Nydia fundoplication procedure. Status post cholecystectomy. L3 vertebral body hemangioma, unchanged. Moderate air distension of the stomach. No evidence of small bowel obstruction. Normal appendix. No evidence of constipation, diverticulitis. 02/23: Abd XR: Reviewed and results as follows: There is marked gaseous distension of the stomach. A&P Assessment and plan 1. N&V (nausea and vomiting): - S/p Niesen fundoplication (08/2024) - 02/23: Abd/pelvis CT: Status post Nydia fundoplication procedure. Status post cholecystectomy. L3 vertebral body hemangioma, unchanged. Moderate air distension of the stomach. No evidence of small bowel obstruction. Normal appendix. No evidence of constipation, diverticulitis. - 02/23: Abd XR: There is marked gaseous distension of the stomach. - General Surgery consulted-Dr. Arriaga. Recommendations and expertise appreciated. - Education given on low gas diet. - Antiemetics as needed - IVF- LR 75ml/hr. - Monitor electrolytes, supplement as indicated 2. Hypothyroidism: - TSH ordered, pending. - Continue home medication levothyroxine 50 mcg PO dly 3. CAD (coronary artery disease): - Continue home medication metoprolol 12.5mg PO dly 4. Dyslipidemia: - Lipid panel ordered, pending. - Continue home medication atorvastatin 10 mg PO dly 5. Chronic GERD: - Protonix 40 mg PO BID 6. Obstructive sleep apnea: - Uses CPAP intermittently at home has not worn CPAP recently 7. Anxiety and depression: - Continue home medication sertraline 100mg PO dly, alprazolam 0.25mg PO BID Plan: CODE STATUS: Full Code GI prophylaxis: Protonix 40 mg p.o. daily VTE prophylaxis: Lovenox 40 mg SC daily PDMP PDMP Reviewed: Not Reviewed Attestations 2 Medical Necessity Statement*: Admitted under observation status. Given complexity of patient's presentation, co-morbid conditions, and required intensity of treatment, a hospitalization under two midnights is anticipated. and High Time for a total of 78 minutes, includes reviewing past or interval history, examining/interviewing patient, placing orders, counseling patient/family/other support, updating patient/family/other support, discussing plan of care with staff, communicating with other healthcare providers, documenting encounter and coordinating care Diagnoses N&V (nausea and vomiting) R11.2 Hypothyroidism E03.9 CAD (coronary artery disease) I25.10 Dyslipidemia E78.5 Chronic GERD K21.9 Obstructive sleep apnea G47.33 Anxiety and depression F41.9; F32.A
--- NOTE | 2025-02-23 17:48 | XRR_ITS ---
PROCEDURE INFORMATION: Exam: XR Chest Exam date and time: 02/23/2025 5:45 PM Age: 64 years old Clinical indication: Device placement; Ng tube; Prior surgery; Surgery date: 6+ months; Surgery type: Gallbladder, hiatal hernia repair; Additional info: Ng placement TECHNIQUE: Imaging protocol: Radiologic exam of the chest. 306 image(s) are submitted. Views: 1 view. COMPARISON: CT abdomen pelvis w con* [id number] 02/23/2025 3:27 PM FINDINGS: Tubes, catheters and devices: Status post nasogastric suction tube placement with tip in the cardiac portion of the stomach. The side-hole is in the body portion of the stomach. Moderate air distension of the stomach. Lungs: Unremarkable. No consolidation. Pleural spaces: Unremarkable. No pleural effusion. No pneumothorax. Heart/Mediastinum: Unremarkable. No cardiomegaly. Bones/joints: Unremarkable. XR/XR chest 1V portable [id number] IMPRESSION: Status post nasogastric suction tube placement with tip in the cardiac portion of the stomach. The side-hole is in the body portion of the stomach, in adequate location. Moderate air distension of the stomach.
[2025-02-23] MEDS: LORazepam 2 mg/mL INJ 1 mL 0.5 MG IVP (18:03)
[2025-02-23 18:23] LABS: Cholesterol 196 mg/dL (0-200); HDL Cholesterol 60 mg/dL (60-100); Thyroid Stimulating Hormone 2.85 uIU/mL (0.27-4.20); Triglycerides 143 mg/dL (0-150)
--- NOTE | 2025-02-23 19:54 | PM.CONSULT ---
Providers/Reason For Consult Consulting Physician/Specialty*: Dr. Arriaga general surgery Reason for Consult*: Nydia fundoplication Attending Physician: Lester Foster Primary Care Provider: Molina Arroyo MD History of Present Illness History of Present Illness Shu Tolentino is a 64 year old female whom surgery was consulted for evaluation of patient status post Nydia fundoplication. Patient came into the hospital with bloating and epigastric pain. No obstructive symptoms. She has followed up with her primary surgeon and to her knowledge her surgery went well and has had no complications. Denies any dysphagia. Abdomen is benign. Reports having recently changed PPI to every other day. No smoking. No NSAIDs. Medications/Allergies Home Medications ?Medication ?Instructions ?Recorded ?Confirmed ?Last Taken ?Type albuterol sulfate 90 mcg/actuation 2 puff inhalation Q6H PRN 06/18/22 02/23/25 07/04/24 Rx aerosol inhaler Shortness Of Breath Or Wheezing #8.5 grams tizanidine 4 mg capsule 4 mg PO Q6H PRN muscle spasticity 07/12/22 02/23/25 07/04/24 Rx #60 caps nitroglycerin 0.4 mg sublingual 0.4 mg sublingual Q5M PRN chest 01/27/24 02/23/25 Unknown Rx tablet pain #30 tabs Vitamin C 1 tab PO BEDTIME 07/02/24 02/23/25 02/22/25 20:00 History ferrous sulfate 325 mg (65 mg 325 mg PO BEDTIME 07/02/24 02/23/25 02/22/25 20:00 History iron) tablet levothyroxine 50 mcg tablet 50 mcg PO BEDTIME 07/02/24 02/23/25 02/22/25 20:00 History multivitamin 1 tab PO BEDTIME 07/02/24 02/23/25 02/22/25 20:00 History auto titrating c-pap 6-14 #1 ea 08/21/24 02/23/25 Unknown Rx acetaminophen 500 mg capsule 1,000 mg PO Q12H PRN osteoarthritis 09/25/24 02/23/25 Unknown History alprazolam 0.25 mg tablet 0.25 mg PO BID PRN anxiety 02/23/25 02/23/25 Unknown History atorvastatin 10 mg tablet 10 mg PO BEDTIME 12/02/23/25 02/22/25 20:00 History metoprolol succinate 25 mg 12.5 mg PO BEDTIME 02/23/25 02/23/25 02/22/25 20:00 History tablet,extended release 24 hr sertraline 100 mg tablet 100 mg PO BEDTIME 02/23/25 02/23/25 02/22/25 20:00 History aluminum-mag hydroxide-simethicone 10 ml PO QID PRN dyspepsia #3,000 02/24/25 Unknown Rx 200 mg-200 mg-20 mg/5 mL oral susp mL (Maalox Advanced) omeprazole 20 mg capsule,delayed 20 mg PO DAILY Heartburn 90 days 02/24/25 02/23/25 07/04/24 Rx release #0 caps Allergies Allergy/AdvReac Type Severity Reaction Status Date / Time No Known Allergies Allergy Verified 11/13/24 15:26 Current Medications Generic Name Dose Route Start Last Admin Trade Name Freq PRN Reason Stop Dose Admin Enoxaparin Sodium 40 mg 02/23/25 18:00 02/23/25 18:05 Enoxaparin 40 Mg/0.4 Ml Syringe SUBCUT 40 mg Q24H JUAN Administration Sodium Chloride 1,000 mls @ 125 mls/hr 02/23/25 15:30 02/23/25 15:52 Sodium Chloride 0.9% IV 125 mls/hr .Q8H JUAN Administration PFSH Acute PFSH: Medical History (Updated 02/23/25 @ 17:38 by Teresa Mata NP) CAD (coronary artery disease) Positive antinuclear antibody Polyarthralgia Obstructive sleep apnea Phlebitis after infusion Desmoid tumor Left breast Hypothyroidism Dyslipidemia Chronic GERD Surgical History (Updated 02/25/25 @ 13:32 by Maurilio Arriaga MD) Status post left breast lumpectomy (12/01/20) History of foot surgery History of nasal surgery History of cholecystectomy History of colonoscopy (03/05/21) History of esophagogastroduodenoscopy (EGD) Family History Denies family history of Anesthesia complication Bleeding disorder Social History Smoking and tobacco/nicotine status: never used tobacco/nicotine Alcohol intake: current Alcohol intake frequency: holidays/special occasions only Substance/Drug Use: never Vitals/I&O/Wt Last Vital Signs Temp 97.4 F L 02/23/25 13:57 Pulse 95 02/23/25 19:39 Resp 17 02/23/25 19:15 BP 127/94 02/23/25 19:39 Pulse Ox 93 02/23/25 19:39 O2 Del Method Room Air 02/23/25 16:04 Weight last 48 hrs Weight 260 lb Physical Exam Narrative: Chest: Unlabored breathing room air. No lymphadenopathy. Heart: Regular rate and rhythm. Abdomen: Soft, nontender, nondistended. No masses or lymphadenopathy. Data 02/24/25 03:22 02/24/25 03:22 A&P Assessment and plan 1. History of Nydia fundoplication: Plan: 64-year-old female status post Nydia fundoplication 6 months ago whom surgery was consulted to rule out an acute surgical issue. CT scan without any acute surgical issues. Patient denies any obstructive symptoms. Abdomen is benign. She is tolerating p.o. Symptoms may be related to peptic ulcer disease. Recommend switching back to PPI every day. She can also follow-up with her primary surgeon although I suspect her symptoms are unrelated to her surgery. Discussed with hospitalist PDMP PDMP Reviewed: Not Reviewed Coding Level of Care Code 89003 Diagnoses History of Nydia fundoplication Z98.890
[2025-02-24] VITALS: BP 120/70; PULSE 82; RESP 18; TEMP 36.6; O2SAT 92
[2025-02-24 04:00] VITALS: BP 150/92; PULSE 78; RESP 18; TEMP 36.7; O2SAT 94
[2025-02-24 04:42] LABS: Hematocrit 42.1 % (36-47); Hemoglobin 13.50 g/dL (11.27-16.99); Mean Corpuscular HGB Conc 32.1 g/dL (30-55); Mean Corpuscular Hemoglobin 27.6 pg (27-33); Mean Corpuscular Volume 86.1 fl (85-98); Nucleated Red Blood Cells % 0 %; Platelet Count 121 10^3/cmm (157-399); Red Blood Count 4.89 10^6/uL (3.85-5.65); White Blood Count 4.52 10^3/uL (3.29-11.43)
[2025-02-24] MEDS: metoprolol succinate ER (24 HR) 25 mg Tablet 12.5 MG PO (05:07)
[2025-02-24 05:24] LABS: Alanine Aminotransferase 61 U/L (0-33); Albumin Level 3.9 g/dL (3.5-5.2); Alkaline Phosphatase 132 U/L (35-105); Anion Gap 13.1 (5-19); Aspartate Amino Transferase 95 U/L (0-32); Blood Urea Nitrogen 11 mg/dL (8-23); Calcium 8.9 mg/dL (8.5-10.5); Carbon Dioxide 26 mmol/L (22-29); Chloride 105 mmol/L (98-107); Globulin 2.4 g/dL (1.3-4.6); Glucose 96 mg/dL (65-115); Osmolality Calculated 289 mOsm/kg (285-295); Potassium 4.1 mmol/L (3.5-5.1); Sodium 140 mmol/L (136-145); Total Protein 6.3 g/dL (6.6-8.7)
[2025-02-24 07:58] VITALS: BP 127/84; PULSE 79; RESP 17; TEMP 36.7; O2SAT 95
--- NOTE | 2025-02-24 11:22 | P.PN_ITS ---
Subjective 2 Subjective: No acute events overnight Tolerating p.o. No abdominal pain Vitals/I&O/Wt Last Vital Signs Temp 98.0 F 02/24/25 07:58 Pulse 79 02/24/25 07:58 Resp 17 02/24/25 07:58 BP 127/84 02/24/25 07:58 Pulse Ox 95 02/24/25 07:58 O2 Del Method Room Air 02/24/25 07:58 02/23/25 02/24/25 02/24/25 22:59 06:59 14:59 Intake Total 1000 / 1000 916.25 / 916.25 Output Total 300 / 300 Balance 1000 / 1000 616.25 / 616.25 Weight last 48 hrs Weight 272 lb 1 oz Weight 270 lb 3.2 oz Weight 260 lb Physical Exam 2 Narrative: Chest: Unlabored breathing room air. No lymphadenopathy. Heart: Regular rate and rhythm. Abdomen: Soft, nontender, nondistended. No masses or lymphadenopathy. Data 02/24/25 03:22 02/24/25 03:22 A&P Assessment and plan 1. History of Nydia fundoplication: Plan: 64-year-old female with a history of Nydia 6 months ago. Currently tolerating p.o. No abdominal pain. Cleared for discharge. Recommend PPI daily. Can follow-up with primary surgeon. Discussed with hospitalist. PDMP PDMP Reviewed: Not Reviewed Attestations 2 Medical Necessity Statement*: N/A Coding Level of Care Code 80156 Diagnoses History of Nydia fundoplication Z98.890
[2025-02-24 11:35] VITALS: BP 146/86; PULSE 69; RESP 17; TEMP 36.6; O2SAT 95
--- NOTE | 2025-02-24 13:03 | PC.NURSE ---
Discharge paperwork discussed with patient. All questions were answered. IV line removed. Patient taken to exit with all belongings via wheelchair, escorted by GILDA Moyer at 1245.
[2025-02-24 13:07] VITALS: BP 146/86; PULSE 69; RESP 17; TEMP 36.6; O2SAT 95
--- NOTE | 2025-02-24 20:04 | P.DS_ITS ---
Discharge Providers Date of Admission: 02/23/25 17:46 Date of Discharge: February 24, 2025 Attending Provider at Admission: Lester Foster Attending Provider at Discharge: Jonathan Rodriguez MD Primary Care Provider: Molina Arroyo MD Diagnoses at Discharge Discharge Diagnosis 1. N&V (nausea and vomiting): 2. Hypothyroidism: 3. CAD (coronary artery disease): 4. Dyslipidemia: 5. Chronic GERD: 6. Obstructive sleep apnea: 7. Anxiety and depression: Reason for Visit Reason for Visit: Mid ABD Pain going to R side and Back Brief History: As per the admitting physician retrospective notes reviewed: Shu Tolentino is a 64 year old female w/ pmhx GERD, hypothyroidism, THEODORE, dyslipidemia, s/p niesen fundoplication (08/2024) and presents with ABD/epigastric pain radiating to right upper side of her back, with associated signs and symptoms of excessive gas, and nausea x 1 day. Patient reports she ate broccoli yesterday and began passing gas more frequently. This morning when she woke up she was very bloated and began having severe abdominal pain and nausea. Patient reports she has had similar signs/symptoms of this in the past but not as severe. Patient to be admitted to hospitalist services with general surgery consultation service for further medical management and care. While in ED a CBC, CMP, UA, lipase was obtained, reviewed and results as follows: MCV 84.9, RDW 15.9, Plt 151. GFR 63. AST 35, ALT 27, alk phos 126. Lipase 47. UA negative for UTI. Hospital Course Hospital Course Patient admitted secondary to nausea vomiting and mild abdominal distention. She is status post Nydia fundoplication in August 2024 therefore considering her complex anatomy of the stomach and abdominal distention it was decided to monitor and observe her for some time with NG tube insertion, electrolyte monitoring, bowel rest. Surgery was taken on board as well for further recommendations. Her home medications were resumed. In the next 24 hours the patient appeared significantly and she was passing gas. Her stomach distention improved. Also during her stay the NGT accidentally came out after she was sneezing however she was stable in terms of her abdominal distention therefore did not require reinsertion. After assessing patient clinically, establishing the stability based on clinical signs and symptoms and recommendation from the surgery to continue daily PPI, the patient was cleared and was discharged accordingly. Medications were reconciled after confirmation and according to patient comorbidities and appropriate follow-ups and referrals were provided at the time of discharge. Patient condition has been discussed at length with the patient/family, I have independently reviewed the chart labs imaging/diagnostics/EKG. the goals of care and code status with the patient/family/NOK/legal liability claims representative, and documented accordingly. The management has been done according to the current clinical condition with respect to patient goals of care and based on recommendations/guidelines. The patient/family has been informed about the current condition and further plan of care. Agreed with the plan of care and understood without any language barrier. Every effort was made to ensure accuracy of variety performer. Any obvious errors or omissions should be clarified with the author of the document. Physical Exam Narrative: General: Alert and oriented, lying comfortably without any distress HEENT: Normocephalic, atraumatic, grossly unremarkable exam Cardio: normal rate rhythm, normal S1-S2 without any murmurs, rubs, or gallops and JVD normal Respiratory: normal vascular breathing on auscultation without any wheezes, stridor, rhonchi GI: Abdomen soft, nontender, nondistended, normoactive bowel sounds present all 4 quadrants, Neuro: intact cranial nerves motor and sensory and cerebellar/coordination function without any focal neurological deficit Behavior: Appropriate and cooperative Extremities: Adequate palpable pulses, no edema or cyanosis observed Skin: grossly unremarkable exam Discharge Data Studies Completed and Pending Completed Studies During Hospitalization Category Date Time Status CT abdomen pelvis w con* [id number] Stat Cat Scan 02/23/25 15:17 Completed XR abdomen 1V* [id number] Stat Exams 02/23/25 14:29 Completed XR chest 1V portable [id number] Routine Exams 02/23/25 17:48 Completed Radiology Impressions Abdomen X-Ray 02/23/25 14:29 IMPRESSION: There is marked gaseous distension of the stomach. Abdomen/Pelvis CT 02/23/25 15:17 IMPRESSION: Abdominal pain is difficult to explain. status post Nydia fundoplication procedure. Status post cholecystectomy. L3 vertebral body hemangioma, unchanged. Moderate air distension of the stomach. No evidence of small bowel obstruction. Normal appendix. No evidence of constipation, diverticulitis. Chest X-Ray 02/23/25 17:48 IMPRESSION: Status post nasogastric suction tube placement with tip in the cardiac portion of the stomach. The side-hole is in the body portion of the stomach, in adequate location. Moderate air distension of the stomach. Laboratory Results WBC 4.52 10^3/uL (3.29-11.43) 02/24/25 03:22 RBC 4.89 10^6/uL (3.85-5.65) 02/24/25 03:22 Hgb 13.50 g/dL (11.27-16.99) 02/24/25 03:22 Hct 42.1 % (36-47) 02/24/25 03:22 MCV 86.1 fl (85-98) 02/24/25 03:22 MCH 27.6 pg (27-33) 02/24/25 03:22 MCHC 32.1 g/dL (30-55) 02/24/25 03:22 RDW 15.9 % (12.1-15.1) H 02/24/25 03:22 Plt Count 121 10^3/cmm (157-399) L 02/24/25 03:22 MPV 9.7 fL (7.4-10.4) 02/24/25 03:22 Neut % (Auto) 52.0 % 02/24/25 03:22 Lymph % (Auto) 35.4 % 02/24/25 03:22 Stanly % (Auto) 9.3 % 02/24/25 03:22 Eos % (Auto) 2.4 % 02/24/25 03:22 Baso % (Auto) 0.7 % 02/24/25 03:22 Neut # (Auto) 2.35 10^3/uL (1.8-7.7) 02/24/25 03:22 Lymph # (Auto) 1.6 10^3/uL (0.8-4.8) 02/24/25 03:22 Stanly # (Auto) 0.4 10^3/uL (0.2-0.9) 02/24/25 03:22 Eos # (Auto) 0.1 10^3/uL (0.0-0.8) 02/24/25 03:22 Baso # (Auto) 0.0 10^3/uL (0.0-0.1) 02/24/25 03:22 Nucleated RBC % (auto) 0 % 02/24/25 03:22 Nucleated RBCs # 0.0 /100WBC 02/24/25 03:22 Sodium 140 mmol/L (136-145) 02/24/25 03:22 Potassium 4.1 mmol/L (3.5-5.1) 02/24/25 03:22 Chloride 105 mmol/L (98-107) 02/24/25 03:22 Carbon Dioxide 26 mmol/L (22-29) 02/24/25 03:22 Anion Gap 13.1 (5-19) 02/24/25 03:22 BUN 11 mg/dL (8-23) 02/24/25 03:22 Creatinine 0.6 mg/dL (0.5-0.9) 02/24/25 03:22 GFR Calculation 100.6 mL/min (90-130) 02/24/25 03:22 Glucose 96 mg/dL (65-115) 02/24/25 03:22 Calculated Osmolality 289 mOsm/kg (285-295) 02/24/25 03:22 Calcium 8.9 mg/dL (8.5-10.5) 02/24/25 03:22 Total Bilirubin 0.4 mg/dL (0.15-1.2) 02/24/25 03:22 AST 95 U/L (0-32) H 02/24/25 03:22 ALT 61 U/L (0-33) H 02/24/25 03:22 Alkaline Phosphatase 132 U/L (35-105) H 02/24/25 03:22 Total Protein 6.3 g/dL (6.6-8.7) L 02/24/25 03:22 Albumin 3.9 g/dL (3.5-5.2) 02/24/25 03:22 Globulin 2.4 g/dL (1.3-4.6) 02/24/25 03:22 Triglycerides 143 mg/dL (0-150) 02/23/25 14:49 Cholesterol 196 mg/dL (0-200) 02/23/25 14:49 LDL Cholesterol, Calc 107 mg/dL (50-129) 02/23/25 14:49 HDL Cholesterol 60 mg/dL (60-100) 02/23/25 14:49 LDL/HDL Ratio 1.78 RATIO (0.00-3.22) 02/23/25 14:49 Cholesterol/HDL Ratio 3.27 mg/dL (0.0-4.40) 02/23/25 14:49 Lipase 47 U/L (13-60) 02/23/25 14:49 TSH 2.85 uIU/mL (0.27-4.20) 02/23/25 14:49 Urine Color Yellow (Yellow) 02/23/25 15:32 Urine Appearance Clear (CLEAR) 02/23/25 15:32 Urine pH 5.0 (5-7) 02/23/25 15:32 Ur Specific [place] 1.020 (1.005-1.030) 02/23/25 15:32 Urine Protein Negative (Negative) 02/23/25 15:32 Urine Glucose (UA) Negative (Normal) 02/23/25 15:32 Urine Ketones Negative (Negative) 02/23/25 15:32 Urine Blood Negative (Negative) 02/23/25 15:32 Urine Nitrate Negative (Negative) 02/23/25 15:32 Urine Bilirubin Negative (Negative) 02/23/25 15:32 Urine Urobilinogen 0.2 mg/dL (Negative) 02/23/25 15:32 Ur Leukocyte Esterase Negative (Negative) 02/23/25 15:32 Urine RBC 0-2 /hpf (0-2) 02/23/25 15:32 Urine WBC 0-5 /hpf (0-5) 02/23/25 15:32 Ur Squamous Epith Cells 0-5 /hpf (0-5) 02/23/25 15:32 Calcium Oxalate Crystal 15-25 /hpf H 02/23/25 15:32 Amorphous Sediment Not Reportable 02/23/25 15:32 Urine Bacteria None seen /hpf (NONE) 02/23/25 15:32 Hyaline Casts 0.40 /lpf 02/23/25 15:32 Vitals Last Vital Signs Temp 97.9 F 02/24/25 13:07 Pulse 69 02/24/25 13:07 Resp 17 02/24/25 13:07 BP 146/86 02/24/25 13:07 Pulse Ox 95 02/24/25 13:07 O2 Del Method Room Air 02/24/25 11:35 Discharge Plan Discharge Patient Disposition: Home Condition: Stable Prescriptions: New alum-mag hydroxide-simeth [Maalox Advanced] 200-200-20 mg/5 mL suspension 10 ml PO QID PRN (Reason: dyspepsia) Qty: 3000 0RF Rx Instructions: administer between meals and at bedtime Continued albuterol sulfate 90 mcg/actuation HFA aerosol inhaler 2 puff INHALATION Q6H PRN (Reason: Shortness Of Breath Or Wheezing) Qty: 8.5 2RF tizanidine 4 mg capsule 4 mg PO Q6H PRN (Reason: muscle spasticity) Qty: 60 6RF Rx Instructions: do not exceed 3 doses per 24 hrs acetaminophen 500 mg capsule 1,000 mg PO Q12H PRN (Reason: osteoarthritis) nitroglycerin 0.4 mg tablet, sublingual 0.4 mg sublingual Q5M PRN (Reason: chest pain) Qty: 30 2RF Rx Instructions: do not exceed 3 doses per episode multivitamin Tablet 1 tab PO BEDTIME Vitamin C 1 tab PO BEDTIME levothyroxine 50 mcg tablet 50 mcg PO BEDTIME Rx Instructions: TAKE 1 TABLET BY MOUTH EVERY DAY ferrous sulfate 325 mg (65 mg iron) tablet 325 mg PO BEDTIME atorvastatin 10 mg tablet 10 mg PO BEDTIME Rx Instructions: TAKE 1 TABLET BY MOUTH EVERY DAY FOR HYPERLIPIDEMIA sertraline 100 mg tablet 100 mg PO BEDTIME alprazolam 0.25 mg tablet 0.25 mg PO BID PRN (Reason: anxiety) metoprolol succinate 25 mg tablet extended release 24 hr 12.5 mg PO BEDTIME Changed omeprazole 20 mg capsule,delayed release(DR/EC) 20 mg PO DAILY 90 Days Qty: 0 0RF No Action (DME) auto titrating c-pap 6-14 See Rx Instructions .Route .MEDSUPPLY Qty: 1 0RF Rx Instructions: mask and supplies as needed [employer] Super[employer] OK for DC: Surgery Discharge Order = DC NOW: Discharge Order (Routine); Ordered 02/24/25 Ordered By: Jonathan Rodriguez Referrals: Molina Arroyo MD [Primary Care Provider, Family Practice] Referral Note: We have notified your physician's clinic of the need for a follow-up appointment to be scheduled. If you have not heard from them within the next 2 business days, please call them directly. Discharge Diet: Advance as tolerated, Low Cholesterol and GI Soft Discharge Activity: Resume usual activity Patient Instructions: Abdominal Pain (ED), Opioid Safety, Patient Portal & Billy Instructions Discharge Attestations Time Spent in Discharge Care*: greater than 30 min Specific Discharge Activities: educating patient, educating and/or supporting family/caregiver, discussing with pcp/other providers, discussing with case resolution specialist/social workers/dc planners, documenting/other paperwork and evaluating patient/reviewing data Status at Discharge: Cognitive status at discharge: cognitively intact , Behavioral status at discharge: cooperative , Functional status at discharge: independent ambulation , Overall status at discharge: patient is back to baseline Quality Metrics Clinical Quality Measures [ No reported AMI, CVA or VTE this stay] Coding Level of Care Code Acute Code for Chg Fwd Diagnoses N&V (nausea and vomiting) R11.2 Hypothyroidism E03.9 CAD (coronary artery disease) I25.10 Dyslipidemia E78.5 Chronic GERD K21.9 Obstructive sleep apnea G47.33 Anxiety and depression F41.9; F32.A
== END 2025-02-24 12:45 | disposition home or self-care (01) ==
LOC: ER 18:30 → MEDSURG 18:49
PROVIDERS: Admitting Provider Internal Medicine; Emergency Provider Physician Assistant; PCP Family Medicine; Visit Provider Student in an Organized Health Care Education/Training Program
DX: R11.2 Nausea with vomiting, unspecified (principal); E03.9 Hypothyroidism, unspecified; I25.10 Atherosclerotic heart disease of native coronary artery without angina pectoris; E78.5 Hyperlipidemia, unspecified; K21.9 Gastro-esophageal reflux disease without esophagitis; G47.33 Obstructive sleep apnea (adult) (pediatric); F41.9 Anxiety disorder, unspecified; F32.A Depression, unspecified; Z98.890 Other specified postprocedural states
CPT/HCPCS: 36415; 71045; 74018; 74177; 80053; 80061; 81001; 83690; 84443; 85025; 96361; 96372; 96374; 96375; 99285; G0378; J1171; J1650; J2060; J2270; J2405; J7030; J7120; J9999